=== PATIENT | male | born 1945 | race Caucasian/White ===

== ENCOUNTER 2022-05-06 12:15 | Emergency (ER) | payer MEDICARE, SELFPAY ==
--- NOTE | 2022-05-06 12:17 | ED.GENADULT ---
HPI - General Adult General Chief complaint: Dizziness Stated complaint: Heat Exposure Time Seen by Provider: 05/06/22 12:17 Source: patient and RN notes reviewed History of Present Illness HPI narrative: Patient is a 76-year-old male who presents the urgent care with the spouse with complaints of possible heat exhaustion. States that he was at a car shower morning. It was believed that the patient tripped over a couple water bottles and onto his bottom. Patient states he did not hit his head. Friend states that he seemed slightly disoriented after the fall. Spouse states that he is acting his normal since then . Patient currently denies any chest pain or dizziness. Denies of any known loss of consciousness. Patient has not taken any new medications or had any recent illness. Denies of any fever, nausea or vomiting. No other acute complaints. No acute distress noted. Patient and spouse aware of the plan of care. Some parts of this dictation were generated by voice recognition software and may contain typographical and/or grammatical inaccuracies. Related Data Home Medications Medication Instructions Recorded Confirmed amlodipine 5 mg-benazepril 10 mg 1 cap PO DAILY 05/06/22 05/06/22 capsule gabapentin 300 mg tablet 300 mg PO DAILY 05/06/22 05/06/22 hydrochlorothiazide 25 mg tablet 25 mg PO DAILY 05/06/22 05/06/22 metoprolol succinate 50 mg 50 mg PO DAILY 05/06/22 05/06/22 tablet,extended release 24 hr ropinirole 0.25 mg tablet 0.25 mg PO BID 05/06/22 05/06/22 vit 1 cap PO DAILY 05/06/22 05/06/22 C,E,zinc,Xa-fbeji-3-lutein-zeaxanthin 250 mg-2.5 mg-0.5 mg capsule Allergies Allergy/AdvReac Type Severity Reaction Status Date / Time No Known Allergies Allergy Verified 05/06/22 12:28 Review of Systems Review of Systems: CONSTITUTIONAL: Denies fever, chills, or sweats. EYES: Denies visual changes, redness, or discharge. ENT: Denies rhinorrhea, congestion, sore throat, or otalgia. CARDIOVASCULAR: Denies chest pain, palpitations, or edema. RESPIRATORY: Denies cough or dyspnea. GASTROINTESTINAL: Denies abdominal pain, nausea, vomiting, or diarrhea. GENITOURINARY: Denies dysuria or hematuria. SKIN: Denies rash or itching. MUSCULOSKELETAL: Denies back pain, joint pain, or myalgia. NEUROLOGIC: Denies headache, numbness, or weakness. Reports of an episode of dizziness All other systems reviewed are negative, except as documented in HPI. PMFSH Comments At the time of my signature, I reviewed and agree with the nursing past medical, surgical, social, and family history. There is no relevant family history pertinent to the patient complaint. Exam Narrative: GENERAL: This is a well-nourished, well-developed patient, in no apparent distress. HEAD: normocephalic, atraumatic. EYES: PERRL. Sclera clear/white. Vision is grossly intact. EARS: External ears normal NOSE: External nose normal with no obvious nasal discharge, nares without redness, no rhinorrhea. THROAT: Mucous membranes moist, posterior pharynx clear. NECK: Neck supple CARDIOVASCULAR: Regular rate and rhythm without murmurs, gallops, or rubs. RESPIRATORY: Clear to auscultation. Breath sounds equal bilaterally. No wheezes, rales, or rhonchi. SKIN: warm, intact with no suspicious lesions or rash, good texture and turgor. NEURO: awake, alert, and oriented to person, place and time. There were no obvious focal neurologic abnormalities. No signs of disorientation EXTREMITIES: No clubbing, cyanosis, or edema. Course Course Level of Care: Express Care Visit Vital Signs Vital signs: Vital Signs Temperature 97.2 F L 05/06/22 12:22 Pulse Rate 72 05/06/22 12:22 Respiratory Rate 16 05/06/22 12:22 Blood Pressure 117/56 L 05/06/22 12:22 Pulse Oximetry 100 05/06/22 12:22 Oxygen Delivery Room Air 05/06/22 12:22 Temperature 97.2 F L 05/06/22 12:31 Pulse Rate 72 05/06/22 12:31 Respiratory Rate 16 05/06/22 12:31 Blood Pressure 11
[2022-05-06 12:22] VITALS: BP 117/56; PULSE 72; RESP 16; TEMP 36.2; O2SAT 100
[2022-05-06 12:31] VITALS: BP 117/56; PULSE 72; RESP 16; TEMP 36.2; O2SAT 100
--- NOTE | 2022-05-06 12:36 | ECG_ITS ---
Measurements Intervals [place] Rate: 66 P: 57 MI: 191 QRS: -3 QRSD: 90 T: 58 QT: 395 QTc: 416 Interpretive Statements SINUS RHYTHM NORMAL ECG Electronically Signed On 05-06-2022 15:25:11 CDT by Shine Jean D.O.
[2022-05-06 12:47] LABS: Glucose Point of Care 133 mg/dl (65-105)
== END 2022-05-06 13:04 | disposition home or self-care (01) ==
PROVIDERS: Emergency Provider Nurse Practitioner Family; PCP Internal Medicine
DX: T67.5XXA Heat exhaustion, unspecified, initial encounter (principal); X32.XXXA Exposure to sunlight, initial encounter; I10 Essential (primary) hypertension; G62.9 Polyneuropathy, unspecified
CPT/HCPCS: 81003; 82948; 93005; 99203; G0463

== ENCOUNTER 2025-03-04 08:15 | Emergency (ER) | payer MEDICARE, SELFPAY ==
--- NOTE | ~2025-03-04 | XR_ITS ---
EXAMINATION: XR elbow RT min 3V DATE: 03/04/2025 08:48 INDICATION: Lateral right elbow pain post fall TECHNIQUE: Anteroposterior, two oblique and lateral views of the right elbow were obtained. COMPARISON: None. FINDINGS: Alignment is normal. No fracture or joint effusion. Mild osteoarthritis at the right elbow. Skin lace ration with underlying soft tissue tissue swelling with a few small foci of gas posterior to the olec ranon. IMPRESSION: 1. Mild osteoarthritis right elbow. No joint effusion or acute osseous abnormality. Reviewed, dictated and finalized at location A. IMPRESSION: 1. Mild osteoarthritis right elbow. No joint effusion or acute osseous abnormal ity.
[2025-03-04 08:20] VITALS: BP 150/77; PULSE 90; RESP 20; TEMP 36.7; O2SAT 98
--- OUTSIDE RECORDS SUMMARY | 2025-03-04 08:21 | XMS_ITS | Continuity of Care Document ---
Author Organization [facility] Address [address] [place] [address] Phone Care Team Providers Care Visual Educator Name Role Phone Jose Mcguire DO Unavailable Unavailable Advance Directives Directive Yes / No Effective Date File Name No Information Encounters Encounter Description Practice Location Reason(s) For Visit Diagnoses Date Provider Providers Copied on Encounter [facility], [id number] [place] [address] [address], [place], [place], [id number], [place] tel:[phone] [facility] No Information Maynor Rodriguez. [address] [facility], [place], [address], [place]. tel: [phone] Family History Family Member Type Diagnosis Age At Onset No Information Payers Payer name Insurance type Covered green party ID Authoriza tion(s) No Information Social History Type Description Quantity Date Captured Comments Sex Male Smoking Status No Information Chief Complaint And Reason For Visit No Information Reason For Referral Reason For Referral No Information History Of Present Illness Encounter Date Complaint History Of Prese nt Illness No Information Functional Status Date Functional Assessmen t No Information Instructions Date Instruction Additional Infor mation No Information Assessments Type Assessment Date No Information Patient Care Teams Name Effective Dates (start - stop) Status Members No Information
--- OUTSIDE RECORDS SUMMARY | 2025-03-04 08:21 | XMS_ITS | Encounter Summary ---
Author Organization [facility] Address [address] [place] [address] Care Team Providers Care Bundle Collector Name Role Phone Jerry Cortes MD Unavailable [phone] Betito Servin MD PhD Unavailable [phone] Isaias Moore MD Unavailable [phone] Lukas Rose MD Unavailable Demetrius Nixon MD Primary Care Provider [phone] Reason for Visit * Reason Onset Date Comments Additional Services Or Orders 02/24/2025 Encounter Details Date Type Department Care Team (Late st Contact Info) Description 02/24/[address] [facility] [address] [place] [address] Demetrius Nixon MD [address] [place] [address] Additional Services Or Orders Social History Tobacco Use Types Packs/Day Years Used Date Smoking Tobacco: Former Cigarettes 1 20 1 960 - 1980 Smokeless Tobacco: Never Alcohol Use Standard Drinks/Week Comments No 0 (1 standard drink = 0.6 oz pur e alcohol) OASIS D0700: Social Isolation Answer Da te Recorded Frequency of experiencing loneliness or isolatio n Rarely 01/28/2025 OASIS A1250: Transportation Answer Date Recorded Lack of Transportation (Medical) No 01/02/2025 Lack of Transportation (Non-Medical) No 01/02/2025 Patient Unable or Declines to Respond No 01/02/2025 OASIS B1300: Health Literacy Answer Lalito e Recorded Frequency of needing help to read materials from doctor or pharmacy Always 01/02/2025 [facility] Utilities Answer Date Recorded In the past 12 months has th e [employer], gas, oil, or water company threatened to shut off services in your home? No 12/29/2024 Humiliation, Afraid, Rape, and Kick questionnair e Answer Date Recorded Within the last year, have y ou been afraid of your partner or ex-partner? No 06/29/2024 Within the last year, have y ou been humiliated or emotionally abused in other ways by your partner or ex-partner? No Within the last year, have y ou been kicked, hit, slapped, or otherwise physically hurt by your partner or ex-partner? No 06/29/2024 Within the last year, have y ou been raped or forced to have any kind of sexual activity by your partner or ex-partner? No 06/29/2024 Social Connection and Isolat ion Panel [NHANES] Answer Date Recorded In a typical week, how many times do you talk on the phone with family, friends, or neighbors? More than three times a week 12/29/2024 How often do you get togethe r with friends or relatives? More than three times a week 12/29/2024 How often do you attend chur or pentecostal services? More than 4 times per year 12/29/2024 Do you belong to any clubs o r organizations such as baptist groups, unions, fraternal or athletic groups, or school groups? No 12/29/2024 How often do you attend meet ings of the clubs or organizations you belong to? Never 12/29/2024 Are you , , di vorced, , never , or living with a partner? 12/29/2024 AUDIT-C Answer Date Recorded Q1: How often do you have a drink containing alcohol? Never 12/04/2024 Q2: How many drinks containi ng alcohol do you have on a typical day when you are drinking? Patient does not drink Q3: How often do you have si x or more drinks on one occasion? Never 12/04/2024 Overall Financial Resource Strain (CARDIA) Answe r Date Recorded How hard is it for you to pa y for the very basics like food, housing, medical care, and heating? Not very hard 12/29/2024 PHQ-2 Answer Date Recorded PHQ-2 Total Score (If total score is 3 or more points, staff should administer the PHQ-9) 0 12/29/2024 [facility] Occupational Stress Questionnaire Answer Date Recorded Do you feel stress - tense, restless, nervous, or anxious, or unable to sleep at night because your mind is troubled all the time - these days? Very much 06/29/2024 Exercise Vital Sign Answer Date Recorde d On average, how many days pe r week do you engage in moderate to strenuous exercise (like a brisk walk)? 7 days 06/29/2024 On average, how many minutes do you engage in exercise at this level? 20 min 06/29/2024 Hunger Vital Sign Answer Date Recorded Within the past 12 months, y ou worried that your food would run out before you got the money to buy more. Never true 12/30/19 25 Within the past 12 months, t he food you bought just didn't last and you didn't have money to get more. Never true 12/29/2024 PRAPARE - Transportation Answer Date Re corded In the past 12 months, has l ack of transportation kept you from medical appointments or from getting medications? No 12/20 In the past 12 months, has l ack of transportation kept you from meetings, work, or from getting things needed for daily living? No 12/29/2024 Housing Stability Vital Sign Answer Lalito e Recorded In the last 12 months, was t here a time when you were not able to pay the mortgage or rent on time? No 12/29/2024 In the past 12 months, how m any times have you moved where you were living? 0 12/29/2024 At any time in the past 12 m [facility], were you homeless or living in a custodial (including now)? No 12/29/2024 Personal Safety Answer Date Recorded Have you ever been in or are you currently in a harmful physical or emotional relationship or is someone making you feel afraid or unsafe? Denies 2024 Sex and Gender Information Value Date Recorded Sex Assigned at Not on file Legal Sex Male 11:58 PM RODBUSTER Gender Identity Not on file Sexual Orientation Not on file documented as of this encounter Miscellaneous Notes * Telephone Encounter - Bharati Arciniega MA - 02/24/2025 1:13 PM CDT Spoke w/ Abeba and gave verbal order JEFF Nixon * Telephone Encounter - Deborah Douglas - 02/24/2025 12:28 PM CDT Additional Services or Orders Type of Service Requested:Speech Therapy Duration/Number of Visits: 1 time a week for 2 weeks Is a verbal order acceptable? yes Reason for Request (e.g. condition/symptom, date of COVID exposure if applicable): swallowing, cognitive Details Regarding Additional Services (e.g. type of home health, type of equipment, type of test, etc.): speech therapy Where will services be performed? (if outside of the practice, facility name, address, phone/fax offacility): home Additional Comments: continuation of care. Does message need to be routed? Yes-Action Needed documented in this encounter Plan of Treatment Not on file documented as of this encounter Goals Goal Patient Goal Type Associated Problems Recent Progress Patient-Stated? Author MARLENE General Goal - Patient is knowledgeable about condition when worsening and how to respond ACO Care Management On track(2023 11:02 AM RODBUSTER) Dayton Frank, RN Note: Problem: Knowledge deficit related to signs and symptoms of worsening condition Interventions: - Assess patient's level of understanding related to their condition(s), specific medications and self-management of their chronic conditions. - Send educational materials to patient related to their chronic condition, including signs and symptoms, self-management actions, and serious symptoms that require urgent medical intervention. - Assist patient/provider in developing an action plan for symptom management. - Review with patient weekly: s/s worsening condition, self-management actions to take, when to call CM or provider. documented as of this encounter Visit Diagnoses Not on filedocumented in this encounter Care Teams Bundle Collector Relationship Specialty Start Date End Date Demetrius Nixon MD [address] [place] [address] PCP - General Family Medicine 12/04/22 Jerry Cortes MD [address] [address] Consulting Physician Nephrology 05/29/22 Betito Servin MD PhD [address] [place] [address] Radiation Oncologist Radiation Oncology 09/27/22 Isaias Moore MD [address] [place] [address] Referring Physician Hematology and Oncology 09/28/22 Lukas Rose MD [address] [place] [address] Consulting Physician Pulmonary Disease 09/28/22 documented as of this encounter
--- OUTSIDE RECORDS SUMMARY | 2025-03-04 08:21 | XMS_ITS ---
Author Organization [facility] Address [address] [place] [address] Care Team Providers Care Slot Supervisor Name Role Phone Jerry Cortes MD Unavailable [phone] Betito Servin MD PhD Unavailable [phone] Isaias Moore MD Unavailable [phone] Lukas Rose MD Unavailable Demetrius Nixon MD Primary Care Provider [phone] Active Problems Problem Noted Date Diagnosed Date BPH with obstruction/lower urinary tract symptom s 2024 Benign localized prostatic h yperplasia with lower urinary tract symptoms (LUTS) 11/24/2024 Assessment & Plan (11/24/2024 1:39 PM BANDING MACHINE OPERATOR): Continues on tamsulosin. No orthostasis. Reid catheter in place. WIll monitor response. Hypertension, essential 11/24/2024 Assessment & Plan (11/24/2024 1:40 PM BANDING MACHINE OPERATOR): Stable on amlodipine and tamsulosin. Montior for orthostasis or dizziness or other symptoms of low blood pressure. SIADH (syndrome of inappropriate ADH production) 11/24/2024 Assessment & Plan (11/24/2024 1:40 PM BANDING MACHINE OPERATOR): Reviewed improved sodium with reid placmeent. Montior fluid intake and ogoing surveillance of sodium levels. 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 Blood glucose abnormal 08/12/2024 Urinary retention 07/02/2024 Assessment & Plan (11/24/2024 1:39 PM BANDING MACHINE OPERATOR): Reid catheter in place. Resolution of hematuria. Anticiapting aquaturp on . Montior for recurrent o fhematuria. Assessment & Plan (09/28/2024 2:07 PM BANDING MACHINE OPERATOR): Montior urinary retention and will continue to follow response. Assessment & Plan (08/08/2024 9:07 AM CDT): Reid catheter in place. Patient is following with Urology, will schedule AP void trial, this was originally scheduled for tomorrow however was canceled and patient is aware of need to reschedule this. Continues Flomax 0.4 mg daily. Assessment & Plan (07/08/2024 11:28 AM CDT): - Flomax 0.4mg daily - 07/01: Reid catheter placement - 07/06: reid removed, void check passed Parkinson disease 06/30/2024 Assessment & Plan (09/28/2024 2:07 PM BANDING MACHINE OPERATOR): Continue f/u with neuorology and will follow sinemet. Assessment & Plan (06/30/2024 3:01 PM CDT): - Started on home Sinemet and requip - PT/OT Acute pain 06/30/2024 Assessment & Plan (06/30/2024 12:38 PM CDT): - APAP - Oxy - SRINI - Robaxin Discharge planning issues 06/30/2024 Assessment & Plan (07/08/2024 11:27 AM CDT): - 07/01: Pending OT recs. CM initial assessment completed, +insurance - 07/02-current:Patient is medically stable for discharge, SW/CM updated. Discharge pending facility acceptance - 07/04: Insurance denied rehab. Need to perform P2P. [phone] option 5, due 07/07 by 10:00 AM - 07/07: Pending authorization to [facility] Closed displaced intertrochanteric fracture of r ight femur 06/29/2024 Assessment & Plan (09/28/2024 2:07 PM BANDING MACHINE OPERATOR): Continues to improve ambulation. Reivweed fall prevention. Assessment & Plan (08/08/2024 9:13 AM CDT): Fall at home on 06/28. Surgery, nailing of comminuted right proximal femoral intertrochanteric fracture on 06/29. Patient continues weight-bearing as tolerated, using walker. PT/OT scheduled to start next week. Scheduled with Dr. Zacarias 08/12. Continued Eliquis 2.5 mg b.i.d. for 4 weeks. Using acetaminophen p.r.n. for pain. Assessment & Plan (06/30/2024 3:02 PM CDT): - Ortho consulted - 06/29: CMN R IT femur fx - WBAT + Ambulate with assist - PT/OT for OOB/mobilization as tolerated. 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 Adenocarcinoma, lung, right 09/18/2022 Cancer Staging:Clinical stage from 09/20/2022:Stage IIIB(cT1b, cN3, cM0) - Signed by Betito Servin MD PhD on 11/22/2022 Assessment & Plan (11/24/2024 1:39 PM BANDING MACHINE OPERATOR): COntinue f/u with oncology and will monitor response. No change at the present time. Assessment & Plan (09/28/2024 2:07 PM BANDING MACHINE OPERATOR): Continue f/uw with pulmonary. Reviewed pulmonary hygiene and will montior ersponse. Mediastinal lymphadenopathy 08/25/2022 Overview (08/25/2022): Added automatically from request for surgery [id number] Hilar lymphadenopathy 08/25/2022 Overview (08/25/2022): Added automatically from request for surgery [id number] CEM (obstructive sleep apnea) 05/25/2022 Memory changes 05/25/2022 Hyponatremia 05/24/2022 Disorientation 05/23/2022 Assessment & Plan (05/23/2022 4:39 PM CDT): Etiology of this is not clear. Complicating this is his baseline neuropathy which makes changes in his neurologic exam somewhat more difficult to assess. However he clearly has a change in his thought process with decreased short-term memory and some potential increase in balance difficulties. I have had long conversation with the patient and his this evening concerning possible etiologies of this. Will do laboratory studies looking at causes of confusion as well as an MRI of the brain to rule out structural brain abnormalities. Of possibility although I consider unlikely is that medication effect may be playing into this. They have already reduced his gabapentin from 2 at HS to 1 without any obvious change in his symptoms. May need to look at his blood pressure medications if nothing is apparent on his studies. I will reach out to his neurologist as well. Periodic limb movement disorder 08/03/2021 Assessment & Plan (09/28/2024 2:06 PM BANDING MACHINE OPERATOR): Continues f/u with neuorlogy. 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 Fatigue 03/17/2021 Nocturia 03/17/2021 History of colon polyps 03/02/2021 Overview (03/02/2021): Added automatically from request for surgery [id number] Rheumatoid arthritis of [facility] sites without rheumatoid factor 05/23/2017 Assessment & Plan (05/29/2018 9:14 AM CDT): Patient disease activity is low. Currently not on any medications. He was previously on hcq, but this was stopped by his eye doctor. Denies joint pain and stiffness in his hands. On exam there is mild swelling in the wrists. No tender joints. He is having new sx of increased cold intolerance and fatigue PCP recently did lab work up. Will request copy of labs Will check AVISE test today to monitor for change in serologies. It was ordered at the previous visit, but not done. 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 Continue on metoprolol XL and lisinopril and will follo response. Assessment & Plan (07/02/2024 9:37 AM CDT): - Continue Metoprolol XL 100mg daily Assessment & Plan (11/08/2021 11:52 AM BANDING MACHINE OPERATOR): Long discussion today. His blood pressures that I am seeing here in the office or at least 20 points lower than those checked nearly simultaneously with his machine. Will add metoprolol 50 mg XL daily check renal artery ultrasound and consider obtaining a new machine. RTO 1 month Antinuclear factor positive 05/05/2014 Overview (01/25/2017): MATTHEW+ Assessment & Plan (05/29/2018 9:11 AM CDT): H/o +matthew. Will recheck serologies today Drug indicated 03/07/2010 Overview (01/25/2017): LONG-TERM USE MEDS NEC Neuropathy due to Sjogren's syndrome Overview (01/25/2017): Sjogrens syndrome Assessment & Plan (09/28/2024 2:05 PM BANDING MACHINE OPERATOR): Continues on therapy and supporitve measures with neuropathy. Assessment & Plan (05/29/2018 9:14 AM CDT): See # 1 Assessment & Plan (11/28/2017 3:59 PM BANDING MACHINE OPERATOR): He was last seen in our office in May. 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 Other fernández he had no new symptoms or findings on exam. He requested a referral for a retina specialist as his previous one is no longer taking his insurance. I suggested that he try [facility] or the [facility]. Hereditary and idiopathic neuropathy Anemia Current Treatment and Therapy Plans No current plan information found. Past Treatment and Therapy Plans Oncology Chemotherapy Treatment Plan Name Start Date Discontinue Date Treatment Medications Discontinue Reason Plan Provider Cycles Pemetrexed / CARBOplatin 21 Day Cycles - Non-Small Cell Lung 10/11/20 22 01/10/2023 CARBOplatin (PARAPLATIN)CAR BOplatin (PARAPLATIN) IVPB in 250 mLPEMEtrexed (ALIMTA)PEMEtre xed (ALIMTA) IVPB ([id number]) Therapy Complete Isaias Moore MD 4 of 6 cycles started Oncology Treatment (2) Plan Name Start Date Discontinue Date Treatment Medications Discontinue Reason Plan Provider Cycles Durvalumab Consolidation 1500 mg 28 Day Cycles - Lung 3 01/02/2024 durvalumab (IMFINZI) IVPB in 100 mL solution Therapy Complete Isaias Moore MD 12 of 12 cycles started Radiation Treatments * Course [id number]/18/2022 - 11/29/2022 Treatment Period Energy Fraction Dose Fractions Total Dose Plans Planned RIGHT LUNG 10/18/2022 - 11/29/2022 200 30 / 6,000 Reference Points Delivered RIGHT LUNG 10/18/2022 - 11/29/2022 6,000 Lifetime Dose Tracking * Chemical Lifetime Dose Automatic Entry Manual Entr y Fluoro Time 3.622 minutes 3.622 minutes 0 minutes Air kerma at the reference point (Ka,r) 56.03 mGy 5 6.03 mGy 0 mGy DLP 1,331 mGycm 1,331 mGycm 0 mGycm
--- OUTSIDE RECORDS SUMMARY | 2025-03-04 08:21 | XMS_ITS | Data Portability ---
Author Organization [facility], Main Office Address [address] [place] [address] Care Team Providers Care Telegraph And Teletype Operator Name Role Phone DRE SAUER Primary Care Provider [phone] Assessment No assessment recorded. Plan of Treatment Reminders Order Date Submit Date Provider Last Modified By Organization Details Last Modified Time Details Appointments None recorded. Lab None recorded. Referral None recorded. Procedures None recorded. Surgeries None recorded. Imaging polysomnogr am, titration study - uncorrected on 10 cmH2O and APAP 9-16, last titration [address], [address] [place], [address], 10:35:40 Medication Orders ropinirole 0.5 mg tablet 2022 023 CANDY [facility], [address] [place] [address], [id number], 14:14:05 Patient TargetsNo targets recorded. Patient InstructionsNo instructions recorded. Reason for Referral None Reported. Results Created Date Observation Date Name Description Value Unit Range Abnormal Flag Note LastModifiedBy Organization Detail LastModifiedTime 06/15/2006/14/2023 polys omnog gina, titra tion study No observ ation record ed. [address] [place] [address] [address] [place], [address], 06/20/2023 10:36:25 06/27/20 23 06/13/2023 polys omnog gina, titra tion study No observ ation record ed. BARCODE [facility] [address] [place], [address], 06/27/2023 19:37:49 Result Notes None recorded. Problems Name Problem SNOMED Code Status Onset Date Resolution Date Notes Provider Name and Address Organization Details Recorded Time Nocturia 855087034 Active 2020 Not Available [facility] 3 10:48:28 Periodic limb movement disorder 890805074 Active 2021 Not Available [facility] 3 10:48:28 Essential hypertension 72357653 Active Not Available [facility] 3 10:48:28 Obstructive sleep apnea syndrome 62342215 Active 2021 Not Available [facility] 3 10:48:28 Fatigue 57158729 Active 2022 Marni Mitchell, [facility]- [address] [facility], [address], [place], [address] , [facility] 3 10:42:15 Notes:[facility] diagnostic sleep study 03/30/21 sleep onset = 17 minutes, REM onset = 59.5 minutes, AHI = 9, PLMI = 97 [facility] titration sleep study 05/09/21 sleep onset = 24.5 minutes, REM onset = 244 minutes, ResMed medium AirFit F20 full face mask @ 10 cmH2O, PLMI = 112 [facility] titration sleep study 06/13/23 sleep onset = 13 minutes, REM onset = 186.5 minutes, [employer] medium Emperatriz full face mask @ 16-17 cmH2O, PLMI = 84 Medical History: Early REM onset Mild OSAHS, AHI = 9, 03/30/21, on CPAP c/o IVRC Hypertension BPH PLMD Problem Notes None recorded. Procedures Surgical History None recorded. Imaging Results Imaging Date Name Status LastModified by [facility] Details LastModified Time 06/14/2023 polysomnogram, titration study completed [address] [place], [address], 06/20/2023 10:36:25 06/13/2023 polysomnogram, titration study completed BARCODE [facility] [address] [place], [address], 06/27/2023 19:37:49 Procedure Notes None recorded. Medical Equipment None Reported. Allergies No known drug allergies Medications Name Sig Start Date Stop Date Status Note LastModified by Organization Details LastModified Time ketoconazole 2 % shampoo active Not Available Not Available Not Available Lidocaine Viscous 2 % mucosal solution active Not Available Not Available Not Available metoprolol succinate ER 50 mg tablet,exten ded release 24 hr 06/21 completed Not Available Not Available Not Available ondansetron HCl 8 mg tablet active Not Available Not Available Not Available metoprolol succinate ER 100 mg tablet,exten ded release 24 hr active Not Available Not Available Not Available prochlorpera zine maleate 10 mg tablet active Not Available Not Available Not Available tamsulosin 0.4 mg capsule active Not Available Not Available Not Available amlodipine 5 mg-benazepri l 10 mg capsule TAKE ONE CAPSULE BY MOUTH DAILY 06/21 completed Not Available Not Available Not Available ropinirole 0.25 mg tablet active Not Available Not Available Not Available amlodipine 10 mg tablet active Not Available Not Available Not Available neomycin-robert ymyxin-dexam eth 3.5 mg/mL-10,000 unit/mL-0.1% eye drops active Not Available Not Available No t Available ropinirole 0.5 mg tablet Take 1 tablet every day by oral route in the evening for 30 days. active Not Available Not Available No t Available dexamethason e 4 mg tablet active Not Available Not Available Not Available lisinopril 10 mg tablet active Not Available Not Available Not Available gabapentin 300 mg capsule 06/21 completed Not Available Not Available Not Available folic acid 1 mg tablet active Not Available Not Available No t Available codeine 10 mg-guaifenes in 100 mg/5 mL oral liquid active Not Available Not Available Not Available hydrochlorot hiazide 25 mg tablet 06/21 completed Not Available Not Available Not Available gabapentin 100 mg capsule active Not Available Not Available Not Available albuterol sulfate HFA 90 mcg/actuatio n aerosol inhaler active Not Available Not Available Not Available ketoconazole 2 % topical cream active Not Available Not Available Not Available betamethason e dipropionate 0.05 % lotion active Not Available Not Available Not Available amlodipine 10 mg-benazepri l 20 mg capsule 06/21 completed Not Available Not Available Not Available hydrocodone 7.5 mg-acetamino phen 325 mg/15 mL oral solution active Not Available Not Available Not Available peg 3350-electro lytes 236 gram-22.74 gram-6.74 gram-5.86 gram solution 12/22 completed Not Available Not Available Not Available Combivent Respimat 20 mcg-100 mcg/actuatio n solution for inhalation active Not Available Not Available N ot Available Fluzone High-Dose (PF) 180 mcg/0.5 mL intramuscula r syringe active Not Available Not Available No t Available Fluzone High-Dose (PF) 180 mcg/0.5 mL intramuscula r syringe active Not Available Not Available No t Available Trelegy Ellipta 100 mcg-62.5 mcg-25 mcg powder for inhalation active Not Available Not Available N ot Available Paxlovid 300 mg (150 mg x 2)-100 mg tablets in a dose pack 12/22 completed Not Available Not Available Not Available Vitals Date Recorded Body height Body mass index (BMI) Body weight Body temperature Heart rate Oxygen saturation Oxygen saturation in Arterial blood by Pulse oximetry Systolic blood pressure Diastolic blood pressure Provider Name and Address Organization Details Last Updated DateTime 3 185.42 cm 24.8 kg/m2 21559.3 7 g 97.2 [degF] 68 /min 97 % 97 % 132 mm[Hg] 80 mm[Hg] Bharati Hatch MA [place] [employer] 3 10:33:19 Date Recorded Body height Body mass index (BMI) Body weight Body temperature Heart rate Oxygen saturation Oxygen saturation in Arterial blood by Pulse oximetry Systolic blood pressure Diastolic blood pressure Provider Name and Address Organization Details Last Updated DateTime 3 185.42 cm 24 kg/m2 18065.8 1 g 98 [degF] 96 /min 95 % 95 % 132 mm[Hg] 70 mm[Hg] Bharati Hatch MA [employer] 3 09:31:03 Date Recorded Body height Body mass index (BMI) Body weight Body temperature Heart rate Oxygen saturation Oxygen saturation in Arterial blood by Pulse oximetry Systolic blood pressure Diastolic blood pressure Provider Name and Address Organization Details Last Updated DateTime 3 185.42 cm 24.8 kg/m2 40333.3 7 g 97.2 [degF] 89 /min 97 % 97 % 118 mm[Hg] 48 mm[Hg] Briana [facility]VARA [facility] [employer] [facility] 3 10:37:53 Date Recorded Body height Body mass index (BMI) Body weight Heart rate Oxygen saturation Oxygen saturation in Arterial blood by Pulse oximetry Systolic blood pressure Diastolic blood pressure Provider Name and Address Organization Details Last Updated DateTime 3 185.42 cm 24.5 kg/m2 71183.1 8 g 88 /min 94 % 94 % 112 mm[Hg] 58 mm[Hg] Briana GUEVARA [employer] [facility] [employer] [facility] 3 10:34:07 Date Recorded Body height Body mass index (BMI) Body weight Body temperature Heart rate Oxygen saturation Oxygen saturation in Arterial blood by Pulse oximetry Systolic blood pressure Diastolic blood pressure Provider Name and Address Organization Details Last Updated DateTime 3 185.42 cm 24.7 kg/m2 64132.7 7 g 97.9 [degF] 96 /min 96 % 96 % 140 mm[Hg] 62 mm[Hg] Briana Salinas [employer] [facility] [employer] [facility] 3 12:43:14 Social History Question Answer Notes LastModified by [employer] ion Details LastModified Time Tobacco Smoking Status Former Smoker Not Available [facility] 12/20/2022 10:42:31 Do You Have An Advance Directive? No [id number] Information not available 12/20/2022 What Is Your Level Of Caffeine Consumption? Moderate [id number].[id number] Information not available 12/20/2022 How Much Tobacco Do You Chew? None MIGRATION.[id number] Information not available 12/20/2022 In The 14 Days Before Symptom Onset, Have You Had Close Contact With A Laboratory-confirm ed COVID-19 While That Case Was Ill? No [id number] Information not available 12/20/2022 In The 14 Days Before Symptom Onset, Have You Had Close Contact With A Person Who Is Under Investigation For COVID-19 While That Person Was Ill? No MIGRATION.[id number] Information not available 12/20/2022 What Type Of Diet Are You Following? REGULAR MIGRATION.[id number] Information not available 12/20/2022 Which Illicit Or Recreational Drugs Have You Used? None MIGRATION.[id number] Information not available 12/20/2022 Do You Have An Electrostatic Air Filter? No MIGRATION.[id number] Information not available 12/20/2022 When Did You Quit Smoking? 16+yearssince lastcigarette MIGRATION.[id number] 1554 Information not available 12/20/2022 Do You Have A Humidifier? No MIGRATION.[id number] 3726 Information not available 12/20/2022 Do You Have Moisture Problems In Your Home? No MIGRATION.[id number] Information not available 12/20/2022 What Was The Date Of Your Most Recent Tobacco Screening? 12/01/2021 MIGRATION.[id number] Information not available 12/20/2022 How Many Children Do You Have? 2 MIGRATION.[id number] 3153 Information not available 12/20/2022 Do You Have Any Pets? Yes MIGRATION.[id number] Information not available 12/20/2022 At What Age Did You Start Smoking Tobacco? 19 MIGRATION.[id number] 9412 Information not available 12/20/2022 How Much Tobacco Do You Smoke? 1 PPD MIGRATION.[id number] 7585 Information not available 12/20/2022 How Many Years Have You Smoked Tobacco? 26 MIGRATION.[id number] 0173 Information not available 12/20/2022 Have You Recently Traveled Abroad? No MIGRATION.[id number] Information not available 12/20/2022 Sex: Male Functional Status Question Answer Note LastModified by Organizat ion Details LastModified Time Do you use any illicit or recreational drugs? No MIGRATION.[id number] 9970 Information not available 12/20/2022 What is your level of alcohol consumption? None MIGRATION.[id number] 2520 Information not available 12/20/2022 Do you or have you ever used smokeless tobacco? Never used smokeless tobacco MIGRATION.[id number] 3285 Information not available 12/20/2022 What is your occupation? retired MIGRATION.568112 2790 Information not available 12/20/2022 Do you or have you ever used e-cigarettes or vape? Never used electronic cigarettes MIGRATION.[id number] 8234 Information not available 12/20/2022 What is your exercise level? Occasional MIGRATION.[id number] 4613 Information not available 12/20/2022 Mental Status None recorded. Family History Relationship Description Onset Age of this Age Resolved Age Notes LastModified by Organization Details LastModified Time Father Heart disease [id number] Not available 12/20/2022 10:43:15 Father Hypertensive disorder MIGRATION.[id number] Not available 12/20/2022 10:43:15 Mother Heart disease MIGRATION.[id number] Not available 12/20/2022 10:43:15 Mother Hypertensive disorder MIGRATION.[id number] Not available 12/20/2022 10:43:15 Mother Diabetes mellitus [id number] Not available 12/20/2022 10:43:15 Medical History Condition Response CHEST XRAY N NERVE DISEASE N BLINDNESS N POLIO N LUNG DISEASE/DISORDER N RADIATION / CHEMOTHERAPY N COPD N BLOOD DISEASES N EAR OR HEARING PROBLEMS Y BOWEL PROBLEMS N FEMALE PROBLEMS / INFECTIONS N DEPRESSION (INCLUDING POST ) N STROKE/TIA N CHEST CT N ULCERS N RENAL INSUFFICIENCY N BENIGN PROSTATIC HYPERPLASIA N TB SKIN TEST N OBESITY N EXCESSIVE PERSPIRATION N GERD/NAUSEA N ANEURYSM N URINARY/BLADDER/KIDNEY PROBLEMS N CORONARY ARTERY DISEASE (CAD) N USE OF BLOOD THINNERS N SKIN PROBLEMS N EMPHYSEMA N SHORTNESS OF BREATH N GASTROINTESTINAL DISORDER N PARATHYROID DISEASE N PERIPHERAL VASCULAR DISEASE N GASTROINTESTINAL BLEEDING N BLOOD CLOTS N ASTHMA N CONCUSSION OR SPINAL TRAUMA N VARICOSITIES N GI PROBLEMS N CHF N AIDS/HIV N HYPERTENSION N TOURETTE'S N ANXIETY DISORDER N BLOOD TRANSFUSION N ANEMIA/BLOOD DISORDER N BRONCHITIS N TUBERCULOSIS N GLAUCOMA N SLEEP APNEA N ALLERGIES/HAYFEVER N INFECTIOUS DISEASE N HEART ARRHYTHMIA N PROSTATE N INSOMNIA N HIGH CHOLESTEROL / HYPERLIPIDEMIA N EDEMA N CAROTID BLOCKAGE N BACK / NECK PROBLEMS Y HAVE YOU BEEN HOSPITALIZED OR SEEN IN THE MEDICAL CENTER IN THE PAST YEAR ? N ATHEROSCLEROSIS N BREAST PROBLEMS N HERNIATED DISC N DIALYSIS N FIBROMYALGIA N OSTEOPOROSIS N ARTHRITIS N NO SIGNIFICANT PAST MEDICAL HISTORY N DIABETES, TYPE N SEASONAL ALLERGIES N HEARTBURN / REFLUX N PLEURISY N ADD/ADHD N Bronchoscopy N HEPATITIS / LIVER DISEASE N PULMONARY DISEASE N GOUT N SLEEP DISORDER N ALZHEIMER'S DISEASE N FATIGUE Y DEMENTIA N HERPES N RETINOPATHY N SEIZURES/EPILEPSY N HEADACHES/MIGRAINES N SLEEP STUDY N VASCULAR DISEASE N DIZZINESS N HEAD TRAUMA OR INJURY N HEART DISEASE/HEART PROBLEMS N MULTIPLE SCLEROSIS N PULMONARY FUNCTION TEST N CARDIAC ARRHYTHMIA N CANCER: SPECIFY N ANESTHESIA COMPLICATIONS N PNEUMONIA N ATRIAL FIBRILLATION N PULMONARY EMBOLISM N AUTOIMMUNE DISEASE N Immunizations Vaccine Type Date Status Note Provider Nam e and Address Organization Details Recorded Time influenza, unspecified formulation 8 completed Not Available [employer] 12/20/2022 10:52:49 Influenza, high-dose, trivalent, PF 5 completed Not Available Count includes the [facility] 12/20/2022 10:52:50 COVID-19, mRNA, LNP-S, PF, 30 mcg/0.3 mL dose 1 completed Not Available [facility] 12/20/2022 10:52:50 COVID-19, mRNA, LNP-S, PF, 30 mcg/0.3 mL dose 1 completed Not Available [facility] 12/20/2022 10:52:50 Influenza, high-dose, trivalent, PF 3 completed Not Available [facility] 12/20/2022 10:52:50 Past Encounters Encounter ID Performer Location Encounter Start Date Encounter Closed Date Diagnosis/Indication Diagnosis SNOMED-CT Code Diagnosis ICD10 Code Diagnosis Note [id number] [facility] [place] [address], [address] [place] [address] 03/17/2021 00:00:00 03/17/2021 15:49:28 [id number] [facility] [place] [address], [address] [place] [address] 07/29/2021 00:00:00 07/29/2021 11:34:02 [id number] [facility] [place] [address], [address] [place] [address] 09/01/2021 00:00:00 09/01/2021 10:48:51 [id number] [facility] [place] [address], [address] [place] [address] 12/01/2021 00:00:00 12/01/2021 13:18:09 [id number] BRITTNY Thomas [facility] [place] [address], [address] [place] [address] 06/21/2022 00:00:00 06/21/2022 11:32:28 [id number] DTA Thomas [facility] [address] [place] [address] 12/22/2022 10:23:15 12/22/2022 11:12:18 Obstructive sleep apnea syndrome 80584398 G47.33 In lab study 03/2021 with AHI 8.9 In lab titration with best pressure 10 resulting in AHI 1.8 over 166 minutesMac oriana set up 06/13/21Re john on APAP 9-16Downlo ad today for the last 30 days with 70% use greater than 4 hours. Median pressure 9.1, max pressure 10.6AHI is 7.1ESS 1Encourage d 100% compliance with all sleepDiscu ssed the risks of uncorrecte d CEM, including Follow with PCM for labs, recommend vitamin D, thyroid studies Advised good sleep habits and patterns: -Set a goal for at least 7 to 8 hours of sleep time per day. -Use the bed mainly for sleep and to go to bed only when tired.If unable to fall asleep after 30 minutes, he should get out of bed but should not engage in any activity that requires sustained mental alertness. -Maintain a regular bedtime and wake-up time even on weekends-A void excessive naps during the daytime. If a nap is necessary, limit it to no more than 30 minutes. -Minimize environmen anabelle noise, bright lights, and extremes in bedroom temperatur e.-Avoid alcohol, caffeinate d beverages, and nicotine products for at least 6 hours prior to bedtime. -Avoid strenuous exercise and large meals for at least 4 hours prior to bedtime.Or divina for new mask today with foam insert, this is medically necessary to prevent breakdown. Instructed on use with all napsHe is aware of reportable signs and symptoms RTC in 6 weeks for download, call PRN for concerns Periodic l imb movement disorder 905656116 G47.61 PLMS during titration 112.5/hour He is already on gabapentin at night however dose has been decreased Labs normal He is not taking Ropinirole 0.25mg po 2 hours before bed nightly. Fatigue 84669442 R53.83 Reassess at next OV after changes [id number] DAT Thomas [facility] [address] [place] [address] 02/06/2023 09:11:58 02/06/2023 10:14:48 Obstructive sleep apnea syndrome 91177618 G47.33 In lab study 03/2021 with AHI 8.9In lab titration with best pressure 10 resulting in AHI 1.8 over 166 minutesMac oriana set up 06/13/21Re john on APAP 9-16Downlo ad today for the last 90 days with 88% use greater than 4 hours.Medi an pressure 9.3, max pressure 12AHI is 8.0ESS 3Encourage d 100% compliance with all sleepDiscu ssed the risks of uncorrecte d CEM, including deathFollo w with PCM for labs, recommend vitamin D, thyroid studiesAdv ised good sleep habits and patterns:- Set a goal for at least 7 to 8 hours of sleep time per day.-Use the bed mainly for sleep and to go to bed only when tired.If unable to fall asleep after 30 minutes, he should get out of bed but should not engage in any activity that requires sustained mental alertness. -Maintain a regular bedtime and wake-up time even on weekends-A void excessive naps during the daytime. If a nap is necessary, limit it to no more than 30 minutes.-M inimize environmen anabelle noise, bright lights, and extremes in bedroom temperatur e.Avoid alcohol, caffeinate d beverages, and nicotine products for at least 6 hours prior to bedtime.-A void strenuous exercise and large meals for at least 4 hours prior to bedtime.Or divina for mask fit virtually todayInstr ucted on use with all napsHe is aware of reportable signs and symptomsRT C in 2 months for download, call PRN for concerns Periodic l imb movement disorder 290808084 G47.61 PLMS during titration 112.5/hour He is already on gabapentin 200 at nightLabs normalHe is not taking Ropinirole 0.25mg po 2 hours before bed nightly, he does not want to start another medication R/T his other medical conditions at this timeDoes not wake at night jerking Nocturia 943684510 R35.1 ImprovedLi beth liquid intake prior to bed Fatigue 57607498 R53.83 Multifacto ralReasses s at next OV after changes [id number] Marni Mitchell, [facility] [address] [place] [address] 04/10/2023 10:23:12 04/10/2023 11:42:44 Obstructive sleep apnea syndrome 85353022 G47.33 In lab study 03/2021 with AHI 8.9In lab titration with best pressure 10 resulting in AHI 1.8 over 166 minutesMac oriana set up 06/13/21Re jhon on APAP 9-16 todayHas had multiple pressure changes and has been unable to correct AHIDownloa d today for the last 30 days with 100% use greater than 4 hours.Medi an pressure 10.3, max pressure 14.3AHI is 14.2ESS 6Encourage d 100% compliance with all sleepDiscu ssed the risks of uncorrecte d CEM, including deathFollo w with PCM for labs, recommend vitamin D, thyroid studiesAdv ised good sleep habits and patterns:- Set a goal for at least 7 to 8 hours of sleep time per day.-Use the bed mainly for sleep and to go to bed only when tired.If unable to fall asleep after 30 minutes, he should get out of bed but should not engage in any activity that requires sustained mental alertness. -Maintain a regular bedtime and wake-up time even on weekends-A void excessive naps during the daytime. If a nap is necessary, limit it to no more than 30 minutes.-M inimize environmen anabelle noise, bright lights, and extremes in bedroom temperatur e.Avoid alcohol, caffeinate d beverages, and nicotine products for at least 6 hours prior to bedtime.-A void strenuous exercise and large meals for at least 4 hours prior to bedtime.In structed on use with all napsDiscus sed further plan of care, he agrees to in-lab titration, ordered todayPress ure change todayHe is aware of reportable signs and symptomsRT C in 2 months, call PRN for concerns Periodic l imb movement disorder 598593414 G47.61 PLMS during titration 112.5/hour He is already on gabapentin 200 at nightLabs normalHe is not taking Ropinirole 0.25mg po 2 hours before bed nightly, he does not want to start another medication R/T his other medical conditions at this timeDoes not wake at night jerking Nocturia 254026653 R35.1 ImprovedLi beth liquid intake prior to bed Fatigue 95655322 R53.83 Multifacto ralReasses s at next OV after changes and titration [id number] Marni Mitchell, [employer] [place] [address] [place] [address] 06/20/2023 10:15:11 06/20/2023 10:52:18 Obstructive sleep apnea syndrome 34643424 G47.33 In lab study 03/2021 with AHI 8.9In lab titration 2020 with best pressure 10 resulting in AHI 1.8 over 166 minutesMac oriana set up 06/13/21Re [facility] on APAP 9-16 todayHad multiple pressure changes, unable to correct AHIIn-lab titration completed 05/2023 with best pressure 16-17 - this corrected AHI and oxygen saturation s maintained 93% or greaterAro usal index from PLMD was 3. He did not take ropinirole the night of his studyDownl oad today for the last 30 days with 100% use greater than 4 hours.Not corrected on 11cm A1LWamohoz ged 100% compliance with all sleepDiscu ssed the risks of uncorrecte d CEM, including deathFollo w with PCM for labs, recommend vitamin D, thyroid studiesAdv ised good sleep habits and patterns:- Set a goal for at least 7 to 8 hours of sleep time per day.-Use the bed mainly for sleep and to go to bed only when tired.If unable to fall asleep after 30 minutes, he should get out of bed but should not engage in any activity that requires sustained mental alertness. -Maintain a regular bedtime and wake-up time even on weekends-A void excessive naps during the daytime. If a nap is necessary, limit it to no more than 30 minutes.-M inimize environmen anabelle noise, bright lights, and extremes in bedroom temperatur e.Avoid alcohol, caffeinate d beverages, and nicotine products for at least 6 hours prior to bedtime.-A void strenuous exercise and large meals for at least 4 hours prior to bedtime.In structed on use with all napsPressu re change todayHe is aware of reportable signs and symptomsRT C in 1-2 months, call PRN for concerns Periodic l imb movement disorder 299228013 G47.61 PLMS during titration 112.5/hour He is already on gabapentin 200 at nightLabs normalRopi nirole 0.25mg po 2 hours before bed nightlyDoe s not wake at night jerking Nocturia [id number] R35.1 Improved Fatigue [id number] R53.83 Multifacto ralReasses s at next OV after changes and titration [id number] Marni Mitchell, SALES ORDER SPECIALIST-BC [facility] [place] [address] [place] [address] 08/08/2023 12:23:45 08/08/2023 14:38:03 Obstructive sleep apnea syndrome [id number] G47.33 In lab study 03/2021 with AHI 8.9In lab titration 2020 with best pressure 10 resulting in AHI 1.8 over 166 minutesMac oriana set up 06/13/21Re john on APAP 16-17 todayIn-la b titration completed 05/2023 with best pressure 16-17 - this corrected AHI and oxygen saturation s maintained 93% or greaterAro usal index from PLMD was 3. He did not take ropinirole the night of his studyDownl oad today for the last 30 days with 100% use greater than 4 hours.AHI has improved from 31.1 to 9.6Continu es to have correlatio n between high leak and increased AHIEncoura ged 100% compliance with all sleepDiscu ssed the risks of uncorrecte d CEM, including deathFollo w with PCM for labs, recommend vitamin D, thyroid studiesAdv ised good sleep habits and patterns:- Set a goal for at least 7 to 8 hours of sleep time per day.-Use the bed mainly for sleep and to go to bed only when tired.If unable to fall asleep after 30 minutes, he should get out of bed but should not engage in any activity that requires sustained mental alertness. -Maintain a regular bedtime and wake-up time even on weekends-A void excessive naps during the daytime. 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 PLMS during titration 112.5/hour He is already on gabapentin 200 at nightLabs normalRopi nirole 0.25mg po 2 hours before bed nightlyInc rease to 0.5mgDiscu ssed reportable signs and symptoms Health Concerns Section Related Observation LastModified by Organization Detai ls LastModified Time None Recorded Concern Status LastModified by Organization Details LastModified Time None Recorded Advance Directives Directive N: Payers Encounter Date Sequence Insurance Name Policy Number Policy Holguin Covered Member ID Holguin Member ID Guarantor Name 12/22/2022 1 [employer] - [employer] MEDICARE ADVANTAGE (MEDICARE REPLACEMENT PPO) [id number] Brown Diaz Obrock [id number] Ray Diaz Obrock 02/06/2023 1 [employer] - GROUP MEDICARE ADVANTAGE (MEDICARE REPLACEMENT PPO) [id number] Brown Joe Obrock [id number] Ray Diaz Obrock 04/10/2023 1 [employer] - GROUP MEDICARE ADVANTAGE (MEDICARE REPLACEMENT PPO) [id number] Brown W Obrock [id number] Ray Diaz Obrock 06/20/2023 1 [employer] - GROUP MEDICARE ADVANTAGE (MEDICARE REPLACEMENT PPO) [id number] Brown W Obrock [id number] Ray Diaz Obrock 08/08/2023 1 [employer] - [employer] - GROUP MEDICARE ADVANTAGE (MEDICARE REPLACEMENT PPO) [id number] Obrock [id number] Ray Diaz Obrock Notes Date Note Type Note Provider Name and Address Organization Details Recorded Time 12/22/2022 text/html Mr Jones pressachin ts today, accompanied by his , to follow up on CEM.His last 6 months have been complicated, with hospitalization for hyponatremia and resulting lung cancer diagnosis.He has completed his radiation therapy at this time and is in the middle of his chemotherapy treatmentsHe is not sleeping wellHe is falling asleep unintentionally during the day after lunchHas had significant pain and redness to bridge of nose from current maskFatigue is increasedHe can relate bad nights to days that he has treatmentsNo weight lossDenies GERD and sinus congestionReports he does not wake due to jerking, but reports she notices this frequently when he is napping Marni Mitchell, SALES ORDER SPECIALIST-BC [address], [place], [address], [facility] [employer] 12/22/2022 14:33:15 02/06/2023 text/html Mr Robert stanton ts today, accompanied by his , to follow up on CEM and mask changesReports the foam insert has decreased breakdown but he is having difficulty with mask leakHe is pulling his straps tight but continues to have leak and reports his mask is uncomfortableWife rpeorts she hears the leak frequently throughout the nightHe is [id number]|2025-03-04 08:45:10|2025-03-04 08:45:10|ED.UPPEXIN||||"HPI - Extremity Injury (Upper) General Stated Complaint: fall Time Seen by Provider: 03/04/25 08:56 Source: patient and RN notes reviewed Mode of arrival: ambulatory Limitations: no limitations History of Present Illness HPI narrative: 79-year-old male with history of Parkinson's disease presents with concern for injury to the right elbow. Reports yesterday he slipped and fell while using his walker on some mikala. He has a swollen elbow with open wound. His reports they washed it and put ice on it. MD complaint: injury to: right and elbow Related Data Home Medications Medication Instructions Recorded Confirmed Last Taken Type amlodipine 5 mg-benazepril 10 mg 1 cap PO DAILY 05/06/22 05/06/22 Unknown History capsule gabapentin 300 mg tablet 300 mg PO DAILY 05/06/22 05/06/22 Unknown History hydrochlorothiazide 25 mg tablet 25 mg PO DAILY 05/06/22 05/06/22 Unknown History metoprolol succinate 50 mg 50 mg PO DAILY 05/06/22 05/06/22 Unknown History tablet,extended release 24 hr ropinirole 0.25 mg tablet 0.25 mg PO BID 05/06/22 05/06/22 Unknown History vit 1 cap PO DAILY 05/06/22 05/06/22 Unknown History C,E,zinc,Ae-ncxcd-4-lutein-zeaxanthin 250 mg-2.5 mg-0.5 mg capsule amlodipine 10 mg tablet mg 03/04/25 Unknown History carbidopa 25 mg-levodopa 100 mg tablet 03/04/25 Unknown History tablet fluticasone fur. 100 mcg-umeclid inhalation 03/04/25 Unknown History 62.5 mcg-vilant 25 mcg inhalat.powder (Trelegy Ellipta) levothyroxine 25 mcg tablet mcg 03/04/25 Unknown History lisinopril 10 mg tablet mg 03/04/25 Unknown History metoprolol succinate 100 mg mg PO 03/04/25 Unknown History tablet,extended release 24 hr tamsulosin 0.4 mg capsule mg PO 03/04/25 Unknown History Allergies Allergy/AdvReac Type Severity Reaction Status Date / Time No Known Allergies Allergy Verified 03/04/25 08:51 Review of Systems Review of Systems: CONSTITUTIONAL: Denies malaise, chills, sweats, or fever. SKIN: Denies rash or itching, redness, warmth. Reports laceration left elbow MUSCULOSKELETAL: Reports left elbow pain and swelling NEUROLOGIC: Denies numbness, weakness All systems reviewed & are unremarkable except as noted in HPI and below PMFSH Comments At time of signature, agree with nursing past medical, surgical, social and family history. There is no relevant family history pertinent to the presenting complaint Exam Narrative: GENERAL: Well-appearing, well-nourished, and in no acute distress. HEAD: Normocephalic, atraumatic. EYES: PERRLA, conjunctivae clear NECK: Supple. CHEST: Speaks in full sentences. No respiratory distress. HEART: Regular rate and rhythm. Normal and equal peripheral pulses. EXTREMITIES: Left upper extremity has grossly normal strength and sensation, grossly normal range of motion. Elbow edema without edema, warmth, ecchymosis. Normal sensation with sensitivity to light touch and pain. No point tenderness. No skin tenting, no devitalized tissue or atrophy, no trophic changes, no obvious deformity, alignment normal, nearby joints and structures intact. Distal pulses palpable and equal bilaterally, skin warm, dry, pink. Capillary refill less than 3 seconds. SKIN: Warm, dry, no rash. Skin tear combined with laceration noted to the left elbow NEURO: Alert and oriented x3. PSYCH: Normal mood and affect Back/Spine/Pelvis: Back/spine/pelvis image:  1. 2 cm skin tear with combined laceration Course Course Emergency Course: Laceration noted to the left elbow, occurred yesterday. Laceration is surrounded by complete skin tear. Suturing not appropriate for this reason. Steri-Strips applied to close wound, Gonzalez wrap applied to elbow to keep elbow slightly immobilized to decrease chance of wound opening Patient is aware of diagnosis, understands and agrees to treatment plan. Anticipatory guidance given. Patient agrees to follow-up as directed and is aware of reasons to seek care at the emergency department. Portions of this record may have been created with voice recognition software Level of Care: Express Care Visit Vital Signs Vital signs: Vital Signs Temperature 98.1 F 03/04/25 08:20 Pulse Rate 90 03/04/25 08:20 Respiratory Rate 20 03/04/25 08:20 Blood Pressure 150/77 H 03/04/25 08:20 Pulse Oximetry 98 03/04/25 08:20 Oxygen Delivery Room Air 03/04/25 08:20 Temperature 98.1 F 03/04/25 08:20 Pulse Rate 90 03/04/25 08:20 Respiratory Rate 20 03/04/25 08:20 Blood Pressure 150/77 H 03/04/25 08:20 Pulse Oximetry 98 03/04/25 08:20 Oxygen Delivery Room Air 03/04/25 08:20 Reviewed. Procedures Laceration Laceration 1: Date: 03/04/25 Time: : Site: upper extremity Side (If applicable): right Size (cm): 2 Description: irregular Depth: simple, single layer Pre-repair: wound explored and irrigated ====== Skin Level ====== Skin layer closed with: steri strips ====== Subcutaneous Layer ====== ====== Muscle Layer ====== ====== Tendon Layer ====== MDM - Extremity Injury (Upper) MDM Narrative Medical decision making narrative: Patients injury and pain is consistent with musculoskeletal etiology. No signs of neurological or vascular compromise on exam. Compartments and tissues are soft without signs of compartment syndrome. Pain is felt appropriate for further evaluation on an outpatient basis. Imaging Data My impression: Images reviewed, interpreted by radiologist, agree, see report. Radiologist's impression: EXAMINATION: XR elbow RT min 3V DATE: 03/04/2025 08:48 INDICATION: Lateral right elbow pain post fall TECHNIQUE: Anteroposterior, two oblique and lateral views of the right elbow were obtained. COMPARISON: None. FINDINGS: Alignment is normal. No fracture or joint effusion. Mild osteoarthritis at the right elbow. Skin laceration with underlying soft tissue tissue swelling with a few small foci of gas posterior to the olecranon. IMPRESSION: 1. Mild osteoarthritis right elbow. No joint effusion or acute osseous abnormality. Critical Care Time Critical Care Time Critical Care Time: No Discharge Plan Discharge Clinical Impression: Laceration, Elbow injury Patient Disposition: Home Condition: Stable Instructions: Laceration (ED) Additional Instructions: Your x-ray is normal. Keep Steri-Strips intact for 24-48 hours. Use Gonzalez wrap to help immobilize elbow to help keep wound edges from opening up. Use ice when you have the Gonzalez wrap removed. Please make a follow-up appoint with your primary care provider for further evaluation. If you have any urgent concerns please go to the emergency room Patient Language: Belizean Prescriptions: No Action metoprolol succinate 50 mg Tablet Extended Release 24 Hr 50 mg PO DAILY amlodipine-benazepril 5-10 mg Capsule 1 cap PO DAILY PreserVision AREDS-2 (omega-3) 250-2.5-0.5 mg Capsule 1 cap PO DAILY ropinirole 0.25 mg Tablet 0.25 mg PO BID hydrochlorothiazide 25 mg Tablet 25 mg PO DAILY gabapentin 300 mg Tablet 300 mg PO DAILY Follow-up/Referrals: Harms,Dre Kemp M.D. [Primary Care Provider] - Time of Disposition: 09:38"
--- OUTSIDE RECORDS SUMMARY | 2025-03-04 08:21 | XMS_ITS | Clinical Summary ---
Author Organization [facility] Address [address] [place] [address] Care Team Providers Care Pit Clerk Name Role Phone Luis Patrick MD Primary Care Provider [phone] Source Comments [facility],non-owned Affiliates and Associated Physician Practices is amultiple site organization consisting of ambulatory clinics and hospital sitesin [place], [place], [place] and [place]. This disclosure is being madepursuant to the Care Everywhere program and may not contain all information available regarding this patient. 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 Gender Identity Not on file Sexual Orientation Not on file Plan of Treatment Health Maintenance Due Date Last Done Comments HEPATITIS C SCREENING [birth year]21/1963 DTAP/TDAP/TD VACCINES (1 - Tdap) 1965 PNEUMOCOCCAL VACCINE 50+ (1 of 1 - PCV) 1996 ZOSTER VACCINE (1 of 2) 1996 Respiratory Syncytial Virus (RSV) Vaccine Pt: or over 60 yrs (1 - 1-dose 75+ series) 2021 COVID-19 VACCINE ( - 2023-2 5 season) 2024 DEPRESSION SCREENING 10/22/2024 INFLUENZA VACCINE (Season Ended) 2025 HEPATITIS B VACCINE Aged Out No longe r eligible based on patient's age to complete this topic HIB VACCINE Aged Out No longer eligi ble based on patient's age to complete this topic HPV VACCINE Aged Out No longer eligi ble based on patient's age to complete this topic MENINGOCOCCAL (Group B) VACC INE SHARED DECISION-MAKING Aged Out No longer eligibl e based on patient's age to complete this topic MENINGOCOCCAL GROUPS A/C/Y/W VACCINE Aged Out No longer eligible b ased on patient's age to complete this topic Insurance MEDICARE MEDICARE ADVANTAGE GENERIC Care Teams Pit Clerk Relationship Specialty Start Date End Date Luis Patrick MD PCP - General Internal Medicine 07/23/14
--- OUTSIDE RECORDS SUMMARY | 2025-03-04 08:21 | XMS_ITS | Clinical Summary ---
Author Organization [facility] Address [address] [place] [address] Phone Care Team Providers Care Home Care Coordinator Name Role Phone Demetrius Nixon MD Primary Care Provider [phone] Lowell Mccallum MD Unavailable [phone] Medications amLODIPine (NORVASC) 10 MG Tablet 03/25/20 24 Active aspirin EC 81 MG Tablet Delayed Response Take 81 mg by mouth daily. Active tamsulosin (FLOMAX) 0.4 MG Capsule 03/10/20 24 Active metoprolol Succinate (TOPROL-XL) 100 MG TABLET SR 24 HR 02/26/20 24 Active lisinopril (PRINIVIL, ZESTRIL) 10 MG Tablet 02/20/20 24 Active folic acid (FOLVITE) 1 MG Tablet 04/18/20 24 Active Cholecalcifer ol 50 mcg Tablet Take by mouth. Activ e Cyanocobalami n (VITAMIN B-12) 1000 MCG Tablet Take 1,000 mcg by mouth daily. Active Fluticasone-U meclidin-Mark Anthony nt (Trelegy Ellipta) 100-62.5-25 MCG/ACT AEROSOL POWDER, BREATH ACTIVATED take 1 Puff by inhalation daily. Active rOPINIRole (REQUIP) 0.5 MG Tablet Take 0.5 mg by mouth 3 times daily. Active oxyCODONE (ROXICODONE) 5 MG TabletIndicat ions:Other chronic pain Take 1 Tablet by mouth every 4 hours as needed for Moderate or more severe pain. 120 Tablet 07/09/20 24 Active guaiFENesin-c odeine (TUSSI-ORGANI DIN NR) 100-10 MG/5ML SyrupIndicati ons:Acute cough Take 10 mL by mouth every 4 hours as needed for Cough. 300 mL 07/09/20 Active Additional Information Patient not taking.Reported on 02/19/2025 Ferrous Gluconate 240 (27 Fe) MG Tablet Take by mouth. Activ e methocarbamol (ROBAXIN) 750 MG Tablet Take 750 mg by mouth. 07/08/20 Active levothyroxine (SYNTHROID) 25 MCG Tablet Take 25 mcg by mouth. 12/15/19 Active aspirin-aceta minophen-caff eine (EXCEDRIN) 250-250-65 MG Tablet Take 1 Tablet by mouth. Active sodium chloride 1 GM Tablet Take 1 g by mouth. 07/31/20 Active senna-docusat e (SENOKOT S) 8.6-50 MG Tablet Take 2 Tablets by mouth. 07/08/20 24 Active carbidopa-lev odopa (SINEMET) 25-100 MG Tablet Take 2.5 Tablets by mouth 3 times daily. 1/2 hour before eating 675 Tablet 3 02/20/20 25 Active carbidopa-lev odopa (SINEMET) 25-100 MG Tablet Take 2 Tablets by mouth 3 times daily. 1/2 hour before eating 540 Tablet 1 08/19/20 24 025 Discontinued carbidopa-lev odopa (SINEMET) 25-100 MG Tablet TAKE 2 TABLETS BY MOUTH 3 TIMES DAILY 1/2 HOUR BEFORE EATING 540 Tablet 3 02/17/20 25 025 Discontinued(Re order) Encounters Date Type Department Care Team Description 02/19/2025 10:00 AM CDT Office Visit [facility] [place] [facility] [address] [place] [address] Lowell Mccallum MD Parkinson's disease without dyskinesia or fluctuating manifestations (HCC) (Primary Dx); Polyneuropathy; Sleep apnea, unspecified type; Other fatigue Discharge Disposition: Discharged to home or Selfcare 02/19/2025 Travel 02/15/2025 Refill [facility] [address] [place] [address] Lowell Mccallum MD Medication Refill 01/27/2025 Telephone [facility] [address] [place] [phone] Lowell Mccallum MD 12/16/2024 Telephone [facility] [address] [place] [address] Lowell Mccallum MD from Last 3 Months Social History Tobacco Use Types Packs/Day Years Used Date Smoking Tobacco: Former Cigarettes Smokeless Tobacco: Never Tobacco Cessation:Counseling Given: Not Answered Alcohol Use Standard Drinks/Week Comments Not Currently 0 (1 standard drink = 0.6 oz pur e alcohol) Sex and Gender Information Value Date Recorded Sex Assigned at Not on file Legal Sex Male 4:24 PM CDT Gender Identity Not on file Sexual Orientation Not on file Last Filed Vital Signs Vital Sign Reading Time Taken Comments Blood Pressure 122/72 02/19/2025 9:54 AM CDT Pulse 78 02/19/2025 9:54 AM CDT Temperature 36.7 C (98.1 F) 02/19/2025 9:54 AM CDT Respiratory Rate 16 02/19/2025 9:54 AM CDT Oxygen Saturation 84% 02/19/2025 9:54 AM CDT Inhaled Oxygen Concentration - - Weight 87.8 kg (193 lb 8 oz) 02/19/2025 9:54 AM CDT Height 182.9 cm (6') 02/19/2025 9:54 AM CDT Body Mass Index 26.24 02/19/2025 9:54 AM CDT Plan of Treatment Upcoming Encounters Date Type Department Care Team (Late st Contact Info) Description 08/24/2025 11:00 AM MANAGER OF MAINTENANCE Office Visit [facility] [address] [place] [phone] Lowell Mccallum MD [address] [place] [phone] Health Maintenance Due Date Last Done Comments Hepatitis C Virus (HCV) Screening 1945 Zoster Immunization (1 of 2) 1996 SARS-COV-2 Immunization ( season) 2024 07/19/2023, 07/18/2022, 07/18/2022, Additional history exists Pneumococcal Immunization (50+ years) Completed 06/16/2022, 06/30/2020 TdaP Immunization Completed 06/16/2022 Respiratory Syncytial Virus (RSV) Immunization (Adult) Completed 07/24/2023 Influenza Immunization Completed , 07/24/2023, 07/23/2023, Additional history exists Hepatitis B Immunization Aged Out No longer eligible based on patient's age to complete this topic Human Papillomavirus (HPV) Immunization Aged Out No longer eligible based on patient's age to complete this topic Meningococcal Immunization (ACWY) Aged Out No longer eligible based on patient's age to complete this topic Rotavirus Immunization Aged Out No lo nger eligible based on patient's age to complete this topic Insurance MEDICARE C [facility] Care Teams Home Care Coordinator Relationship Specialty Start Date End Date Demetrius Nixon MD [address] [place] [address] PCP - General Internal Medicine 05/16/24 Lowell Mccallum MD [address] [place] [address] Consulting Physician Neurology 05/16/24
--- OUTSIDE RECORDS SUMMARY | 2025-03-04 08:21 | XMS_ITS | Clinical Summary ---
Author Organization [facility] Address [address] [address] Care Team Providers Care Tape Edge Machine Operator Name Role Phone Demetrius Nixon Primary Care Provider [phone] Allergies No known active allergies Medications Cholecalciferol (Vitamin D) 50 MCG (1999 UT) capsule Take 1 capsule by mouth Active Multiple Vitamins-Minerals (multivitamin with minerals) tablet Take 1 tablet by mouth 1 (one) time each day Active aspirin (ST JUAN) 81 MG EC tablet Take 81 mg by mouth 1 (one) time each day Active Multiple Vitamins-Minerals (PreserVision AREDS 2+Multi Vit) capsule Take 1 tablet by mouth 1 (one) time each day Active metoprolol succinate XL (TOPROL-XL) 100 MG 24 hr tablet Take 1 tablet (100 mg total) by mouth 1 (one) time each day Do not crush or chew. 90 tablet 3 2 Active Fluticasone-Umeclid in-Vilant (Trelegy Ellipta) 100-62.5-25 MCG/ACT aerosol powder Inhale 1 puff 1 (one) time each day Active folic acid (FOLVITE) 1 MG tablet Take 1 mg by mouth 1 (one) time each day Active cyanocobalamin (VITAMIN B-12) 1000 MCG tablet Take 1,000 mcg by mouth 1 (one) time each day Active tamsulosin (FLOMAX) 0.4 MG 24 hr capsule Take 0.4 mg by mouth 1 (one) time each day Active Ferrous Gluconate (Iron) 240 (27 Fe) MG tablet Take by mouth at bed time Active rOPINIRole (REQUIP) 0.5 MG tablet Take 0.5 mg by mouth in the morning and 0.5 mg in the evening and 0.5 mg before bedtime. Active carbidopa-levodopa (PARCOPA) 25-100 MG per disintegrating tablet Take 2 tablets by mouth in the morning and 2 tablets in the evening and 2 tablets before bedtime. Active sodium chloride 1 g tablet Take 1 tablet (1 g total) by mouth in the morning and 1 tablet (1 g total) in the evening. 180 tablet 3 5 Active lisinopril 10 MG tablet TAKE 1 TABLET BY MOUTH DAILY 90 tablet 3 5 Active amLODIPine (NORVASC) 10 MG tablet TAKE 1 TABLET BY MOUTH DAILY 90 tablet 3 5 Active Active Problems No known active problems Encounters Date Type Department Care Team Description 02/20/2025 Documentation Only [facility] [address] [place] [id number] Jerry Cortes MD 01/26/2025 Refill [facility] [address] [place] [address] Jerry Cortes MD 01/17/2025 Documentation Only [facility] [address] [place] [address] Ines Guzmán 12/23/2024 Refill [facility] [address] [place] [address] Jerry Cortes MD from Last 3 Months Family History Medical History Relation Comments Heart disease Father Diabetes Mother Relation Status Comments Father Mother Social History Tobacco Use Types Packs/Day Years Used Date Smoking Tobacco: Former Cigarettes Q uit: 1982 Smokeless Tobacco: Never Tobacco Cessation:Counseling Given: Not Answered Alcohol Use Standard Drinks/Week Comments Not Currently 0 (1 standard drink = 0.6 oz pur e alcohol) Sex and Gender Information Value Date Recorded Sex Assigned at Not on file Legal Sex Male 3:34 PM EDT Gender Identity Not on file Sexual Orientation Not on file Last Filed Vital Signs Vital Sign Reading Time Taken Comments Blood Pressure 116/63 09/30/2024 1:15 PM SUPERVISOR S[employer]KE [employer]OL Pulse 99 09/30/2024 1:15 PM SUPERVISOR [employer] Temperature 36.4 C (97.6 F) 09/30/2024 1:15 PM SUPERVISOR SMOKE CONTROL Respiratory Rate - - Oxygen Saturation 97% 09/30/2024 1:15 PM SUPERVISOR SMOKE CONTROL Inhaled Oxygen Concentration - - Weight 84.4 kg (186 lb) 09/30/2024 1:15 PM SUPERVISOR SMOKE CONTROL Height 182.9 cm (6') 09/30/2024 1:15 PM SUPERVISOR S[employer]KE CONTROL Body Mass Index 25.23 09/30/2024 1:15 PM SUPERVISOR SMOKE CONTROL Plan of Treatment Upcoming Encounters Date Type Department Care Team (Late st Contact Info) Description 03/31/2025 10:15 AM CDT Office Visit [facility] [address] [place] [address] Jerry Cortes MD [address] [place] [address] Health Maintenance Due Date Last Done Comments Pneumococcal Vaccine: 50+ Years (2 of 2 - PCV) 06/30/2021 06/30/2020 Pneumococcal Vaccine: Peds (0 to 5 Years) and At-Risk Patients (6 to 49 Years) Discontinued 06/30/2020 Colorectal Cancer Screening: Colonoscopy Discontinued 03/25/2021 Influenza Vaccine Completed 07/30/2024, , 07/19/2022, Additional history exists Hepatitis B Vaccine Aged Out No longe r eligible based on patient's age to complete this topic Insurance [facility] Medicare Care Teams Tape Edge Machine Operator Relationship Specialty Start Date End [place] [address] PCP - General Internal Medicine 03/25/24
--- OUTSIDE RECORDS SUMMARY | 2025-03-04 08:21 | XMS_ITS | Encounter Summary ---
Author Organization [facility] Address [address] [facility] [place] [address] Phone Care Team Providers Care Varnish Melter Name Role Phone Demetrius Nixon MD Primary Care Provider [phone] Lowell Mccallum MD Unavailable [phone] Encounter Details Date Type Department Care Team (Late Contact Info) Description 07/09/2024 Telephone [facility] [address] [place] [address] Bhargav Simpson, PAC [address] [place], [place] [id number] Social History Tobacco Use Types Packs/Day Years Used Date Smoking Tobacco: Former Cigarettes Smokeless Tobacco: Never Alcohol Use Standard Drinks/Week Comments Not Currently 0 (1 standard drink = 0.6 oz pur e alcohol) Sex and Gender Information Value Date Recorded Sex Assigned at Not on file Legal Sex Male 4:24 PM CDT Gender Identity Not on file Sexual Orientation Not on file documented as of this encounter Plan of Treatment Upcoming Encounters Date Type Department Care Team (Late Contact Info) Description 08/24/2025 11:00 AM PIPELINE INSPECTOR [facility] [address] [place] [address] Lowell Mccallum MD [address] [place] [phone] documented as of this encounter Visit Diagnoses Diagnosis Acute cough- Primary Other chronic pain documented in this encounter Care Teams Varnish Melter Relationship Specialty Start Date End Date Demetrius Nixon MD [address] [place] [address] PCP - General Internal Medicine 05/16/24 Lowell Mccallum MD [address] [place] [phone] Consulting Physician Neurology 05/16/24 documented as of this encounter
--- OUTSIDE RECORDS SUMMARY | 2025-03-04 08:21 | XMS_ITS | Data Portability ---
Author [facility] Address [address] [place] [address] Assessment Encounter Date Assessment Date Assessment LastModified by Organization Details LastModified Time 06/16/2022 06/16/2022 I discussed the pt's presentation, findings, assessment and plan with the resident during the time of service. I agree with the resident's findings, assessment and plan as documented in the note. Dr. Kan [email or web address] Not available 06/19/2022 12:25:20 Plan of Treatment Reminders Order Date Submit Date Provider Last Modified By Organization Details Last Modified Time Details Appointments None recorde d. Lab HbA1c (hemogl obin A1c), blood 022 06/16/20 22 [email or web address] In-Office Order, Internal Use Only DO Not Attach Compendium DO Not Attach Compendium, Do Not Delete/merge, [id number] 16:13:33 Referral None recorde d. Procedures None recorde d. Surgeries None recorde d. Imaging None recorde d. Medication Orders None recorde d. Patient TargetsNo targets recorded. Patient InstructionsNo instructions recorded. Reason for Referral None Reported. Results Created Date Observation Date Name Description Value Unit Range Abnormal Flag Note LastModifiedBy Organization Detail LastModifiedTime 06/16/20 22 06/16/2022 HbA1c (hemo globi n A1c), blood HbA1c 5.8 Not Available In-Office Order Internal Use Only DO Not Attach Compendium DO Not Attach Compendium, Do Not Delete/merge, [id number] 06/16/2022 15:23:37 Result Notes None recorded. Problems No Known Problems Procedures Surgical History Date Name Laterality Status Provider Name and Address Organization Details Recorded Time procedure on eye completed Fanny Sandra MA [facility] 06/16/2022 15:22:03 Imaging Results None recorded. Procedure Notes None recorded. Medical Equipment None Reported. Allergies No known drug allergies Medications Name Sig Start Date Stop Date Status Note LastModified by Organization Details LastModified Time ketoconazol e 2 % shampoo active Not Available Not Available Not Available metoprolol succinate ER 50 mg tablet,exte nded release 24 hr 06/16 completed Not Available Not Available Not Available ondansetron HCl 8 mg tablet active Not Available Not Available Not Available metoprolol succinate ER 100 mg tablet,exte nded release 24 hr active Not Available Not Available Not Available prochlorper azine maleate 10 mg tablet active Not Available Not Available No t Available amlodipine 5 mg-benazepr il 10 mg capsule 06/16 completed Not Available Not Available Not Available ropinirole 0.25 mg tablet 06/16 completed Not Available Not Available Not Available amlodipine 10 mg tablet active Not Available Not Available Not Available dexamethaso ne 4 mg tablet active Not Available Not Available Not Available lisinopril 10 mg tablet active Not Available Not Available Not Available gabapentin 300 mg capsule 06/16 completed Not Available Not Available Not Available folic acid 1 mg tablet active Not Available Not Available Not Available Longs Adult Low Strength ASA 81 mg tablet,nessa yed release Take 1 tablet every day by oral route. active OTC Not Available Not Available No t Available hydrochloro thiazide 25 mg tablet 06/16 completed Not Available Not Available Not Available gabapentin 100 mg capsule active Not Available Not Available Not Available ketoconazol e 2 % topical cream active Not Available Not Available Not Available betamethaso ne dipropionat e 0.05 % lotion active Not Available Not Available Not Available amlodipine 10 mg-benazepr il 20 mg capsule 06/16 completed Not Available Not Available Not Available iron active otc Not Available Not Availa ble Not Available Multiple Vitamins active otc Not Available Not Available Not Available alendronate -vitamin D3 active otc Not Available Not Available Not Available PreserVisio n AREDS active OTC Not Available Not Available Not Available Trelegy Ellipta 100 mcg-62.5 mcg-25 mcg powder for inhalation active Not Available Not Available N ot Available Fish Oil 1,200 mg (144 mg-216 mg) capsule Take by oral route. active OTC Not Available Not Available No t Available Paxlovid 300 mg (150 mg x 2)-100 mg tablets in a dose pack Follow dose pack intructio ns daily x 5 d duration active Not Available Not Available No t Available Vitals Date Recorded Body height Body mass index (BMI) Body weight Heart rate Respiratory rate Oxygen saturation Oxygen saturation in Arterial blood by Pulse oximetry Body temperature Systolic blood pressure Diastolic blood pressure Provider Name and Address Organization Details Last Updated DateTime 185.42 cm 23.2 kg/m2 14816.8 5 g 92 /min 16 /min 95 % 95 % 96 [degF] 146 mm[Hg] 64 mm[Hg] Fanny Sandra MA [facility] 15:10:41 Social History Question Answer Notes LastModified by Organizat ion Details LastModified Time Tobacco Smoking Status Former Smoker quit about 40 years ago Fanny Sandra MA null, [place] - [facility] 06/16/2022 15:18:46 Do You Have An Advance Directive? No Suze Feliz Information not available 06/16/2022 How Many Years Have You Consumed Alcohol? 38 Started Drinking Around 18- ESTES Went To Non Alcohol Years About 20 Years Ago. Information not available 06/16/2022 In The 14 Days Before Symptom Onset, Have You Had Close Contact With A Laboratory-confir med COVID-19 While That Case Was Ill? No Information not available 06/16/2022 In The 14 Days Before Symptom Onset, Have You Had Close Contact With A Person Who Is Under Investigation For COVID-19 While That Person Was Ill? No Information not available 06/16/2022 Have You Been To An Area Known To Be High Risk For COVID-19? No Information not available 06/16/2022 What Was The Date Of Your Most Recent Tobacco Screening? 06/16/2022 Information not available 06/16/2022 What Is Your Current Pack Years? 20-29packye ars Information not available 06/16/2022 What Is Your Relationship Status? Information not available 06/16/2022 Are You Sexually Active? Yes Information not available 06/16/2022 Do You Have Smoke And Carbon Monoxide Detectors In Your Home? Yes Information not available 06/16/2022 At What Age Did You Start Smoking Tobacco? 14 Information not available 06/16/2022 Are You Passively Exposed To Smoke? No Information no t available 06/16/2022 Has Tobacco Cessation Counseling Been Provided? Yes Information not available 06/16/2022 On What Date Was Tobacco Cessation Counseling Provided? 06/16/2022 Information not available 06/16/2022 How Many Years Have You Smoked Tobacco? 22 Information not available 06/16/2022 Sex: Male Functional Status Question Answer Note LastModified by Organizat ion Details LastModified Time What is your level of alcohol consumption? 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 Family History Relationship Description Onset Age of this Age Resolved Age Notes LastModified by Organization Details LastModified Time Mother Diabetes mellitus [email or web address] Not available 06/16 15:16:21 Notes:No hx of cancer Medical History No medical history recorded. Immunizations Vaccine Type Date Status Note Provider Nam e and Address Organization Details Recorded Time COVID-19, mRNA, LNP-S, PF, 100 mcg/0.5mL dose or 50 mcg/0.25mL dose 1 completed Fanny Sandra MA null, [place] - [facility] 06/16/2022 15:24:03 COVID-19, mRNA, LNP-S, PF, 100 mcg/0.5mL dose or 50 mcg/0.25mL dose 1 completed YUNIEL Ballesteros, [place] - [facility] 06/16/2022 15:24:19 COVID-19, mRNA, LNP-S, PF, 100 mcg/0.5mL dose or 50 mcg/0.25mL dose 1 completed YUNIEL Ballesteros, [place] - [facility] 06/16/2022 15:24:41 COVID-19, mRNA, LNP-S, PF, 100 mcg/0.5mL dose or 50 mcg/0.25mL dose 2 completed Fanny Sandra MA null, [place] - [facility] 06/16/2022 15:25:02 Tdap 2 completed Amandeep Kan MD Attn: Accounting,[address] [facility], [place], [address], [place] - [facility] 06/19/2022 12:23:16 Pneumococcal conjugate PCV20, polysaccharide [id number] conjugate, adjuvant, PF 2 completed Amandeep Kan MD Attn: Accounting[address] [facility], [place], [address], [place] [facility] 06/19/2022 12:23:16 Past Encounters Encounter ID Performer Location Encounter Start Date Encounter Closed Date Diagnosis/Indication Diagnosis SNOMED-CT Code Diagnosis ICD10 Code Diagnosis Note [id number] Amandeep Kan MD [place] [address] [place] 4 [facility] [address] [place] [address] 06/16/2022 14:48:03 06/20/2022 13:15:31 Prediabetes 063827214 R73.03 Discussed diet at length including healthier food options, increase vegetable and fiber intake, reduce salt intake, incorporat e yoga/stret ross practices and exercise 30 min 5 x per week to improve cardiovasc ular health. Pt has neuropathy but does not like gabapentin since makes him feel tired Pt declined nutritioni st at this time understand s what he needs to dodid not recommend weight loss as pt BMI 23 Hyponatremia 11889870 E8 7.1 under care of nephrology Dr Cortes - appt coming up 06/20 for follow up post hospital stay requiring urea-na, hypertonic saline, and mutliple interventi ons to correct sodium 123 at lowest and was DC from hospital 06/[address] Cortes has drawn labs today and took CBC and UA and CMP - no need to redo here in clinic Essential hypertension 74000459 I10 amlodipine lisinopril currently BP 146/64 -- usually controlled but today elevatedHR unremarkab leusually controlled BP but currently higher than usual does not require refills at this timewill discuss HTN meds with Dr Cortes Active or passive immunization 602573710 Z23 need for Tdap booster and pneumoniaw ill add Prevnar 20 qONCE Health Concerns Section Related Observation LastModified by Organization Detai ls LastModified Time None Recorded Concern Status LastModified by Organization Details LastModified Time None Recorded Advance Directives Directive N: Suze Feliz Payers Encounter Date Sequence Insurance Name Policy Number Policy Holguin Covered Member ID Holguin Member ID Guarantor Name 06/16/2022 1 [facility] (MEDICARE REPLACEMENT/A DVANTAGE - PPO) [id number] [id number] Ray Feliz Notes Date Note Type Note Provider Name and Address Organization Details Recorded Time 06/16/2022 text/html 76 yo M presents to clinic post hospital follow up for hyponatremia which took several days to resolve. Pt under care of Dr Cortes for nephrology. Pt endorses fatigue but states probably gabapentin induced with addition of HCTZ which also wasted sodium. 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
--- OUTSIDE RECORDS SUMMARY | 2025-03-04 08:22 | XMS_ITS | Clinical Summary ---
Author Organization [facility] Address [address] [place] [address] Care Team Providers Care Fbi Investigator Name Role Phone Jerry Cortes MD Unavailable [phone] Betito Servin MD PhD Unavailable [phone] Isaias Moore MD Unavailable [phone] Lukas Rose MD Unavailable Demetrius Nixon MD Primary Care Provider [phone] Allergies No known active allergies Medications ferrous sulfate ER 324 mg (65 mg iron) EC tabletIndications: Iron Deficiency Anemia Take 65 mg by mouth daily with breakfast Active multivitamin capsuleIndications :Vitamin Deficiency Take 1 capsule by mouth crew car driver before breakfast Active cholecalciferol (VITAMIN D-3) 2000 unit capsuleIndications :Vitamin D Deficiency Take 1 capsule (2,000 Units total) by mouth every morning Active cyanocobalamin (Vitamin B-12) 1,000 mcg tabletIndications: Prevention of Vitamin B12 Deficiency TAKE 1 TABLET BY MOUTH DAILY 120 tablet 3 01/02/20 24 Active Trelegy Ellipta 100-62.5-25 mcg inhalerIndications :Bronchospasm Prevention with COPD USE 1 INHALATION BY MOUTH DAILY 180 each 3 05/29/20 24 Active acetaminophen 500 mg capsuleIndications :Fever,Pain Take 2 capsules (1,000 mg total) by mouth every 6 (six) hours 07/08/20 24 Active carbidopa-levodopa (SINEMET) 25-100 mg per tabletIndications: Parkinsonism Take 1 tablet by mouth 3 (three) times a day before meals 07/08/20 24 025 Active senna-docusate (PERICOLACE) 8.6-50 mgIndications:cons tipation Take 2 tablets by mouth 2 (two) times a day 07/08/20 24 Active amLODIPine (NORVASC) 10 mg tabletIndications: hypertension Take 1 tablet (10 mg total) by mouth crew car driver before breakfast Active lisinopriL (PRINIVIL,ZESTRIL) 10 mg tabletIndications: hypertension Take 1 tablet (10 mg total) by mouth every morning 08/05/20 24 Active tamsulosin (FLOMAX) 0.4 mg extended release capsuleIndications :benign prostatic hyperplasia with lower urinary tract sx TAKE 1 CAPSULE(0.4 MG) BY MOUTH DAILY 90 capsule 1 11/05/19 25 Active sodium chloride 1 gram tabletIndications: hyponatremia prevention Take 1 tablet (1 g total) by mouth 2 (two) times a day 60 tablet 3 11/14/19 25 Active vit A/vit C/vit E/zinc/copper (PRESERVISION AREDS ORAL)Indications:e ye health Take 1 tablet by mouth every morning Active acetaminophen-aspi rin-caffeine (EXCEDRIN MIGRAINE) 250-250-65 mg per tabletIndications: Migraine Take 1 tablet by mouth every 6 (six) hours as needed for headaches Active levothyroxine (SYNTHROID) 25 mcg tabletIndications: hypothyroidism TAKE 1 TABLET BY 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 Indications: a type of movement disorder called parkinsonism 12/11/19 25 Active carbidopa-levodopa ODT (PARCOPA) 25-100 mg per disintegrating tabletIndications: Parkinsonism Take 2.5 tablets by mouth 3 (three) times a day. 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 No orthostasis. Reid catheter in place. WIll monitor response. Hypertension, essential 11/24/2024 Assessment & Plan (11/24/2024 1:40 PM [facility]): Stable on amlodipine and tamsulosin. Montior for orthostasis or dizziness or other symptoms of low blood pressure. SIADH (syndrome of inappropriate ADH production) 11/24/2024 Assessment & Plan (11/24/2024 1:40 PM [facility]): Reviewed improved sodium with reid placmeent. Montior fluid intake and ogoing surveillance of sodium levels. 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 Blood glucose abnormal 08/12/2024 Urinary retention 07/02/2024 Assessment & Plan (11/24/2024 1:39 PM [facility]): Reid catheter in place. Resolution of hematuria. Anticiapting aquaturp on . Montior for recurrent o fhematuria. Assessment & Plan (09/28/2024 2:07 PM [facility]): Montior urinary retention and will continue to [...] 06/30/2024 Assessment & Plan (09/28/2024 2:07 PM [facility]): Continue f/u with neuorology and will follow [...] denied rehab. Need to perform P2P. [phone] option 5, due 07/07 by 10:00 AM - 07/07: Pending authorization to [facility] Closed displaced intertrochanteric fracture of r ight femur 06/29/2024 Assessment & Plan (09/28/2024 2:07 PM [facility]): Continues to improve ambulation. Reivweed fall prevention. [...] 12/28/2022 Assessment & Plan (09/28/2024 2:07 PM [facility]): As above. Adenocarcinoma, lung, right 09/18/2022 Cancer Staging:Clinical stage from 09/20/2022:Stage IIIB(cT1b, cN3, cM0) - Signed by Betito Servin MD PhD on 11/22/2022 Assessment & Plan (11/24/2024 1:39 PM [facility]): COntinue f/u with oncology and will monitor response. No change at the present time. Assessment & Plan (09/28/2024 2:07 PM [facility]): Continue f/uw with pulmonary. Reviewed pulmonary hygiene and will montior ersponse. Mediastinal lymphadenopathy 08/25/2022 Overview (08/25/2022): Added automatically from request for surgery [id number] Hilar lymphadenopathy 08/25/2022 Overview (08/25/2022): Added automatically from request for surgery [id number] CEM (obstructive sleep apnea) 05/25/2022 Memory changes [...] 08/03/2021 Assessment & Plan (09/28/2024 2:06 PM [facility]): Continues f/u with neuorlogy. 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 Fatigue 03/17/2021 Nocturia 03/17/2021 History of colon polyps 03/02/2021 Overview (03/02/2021): Added automatically from request for surgery [id number] [facility] without rheumatoid factor 05/23/2017 Assessment & [...] up in 4 mo, sooner if needed FDC use of drug 05/23/2017 Blindness of one eye 01/20/2015 Overview (01/25/2017): Blind in one eye Lumbar arthritis 01/20/2015 Overview (01/25/2017): Lumbar arthritis Osteoarthritis of hand 01/20/2015 Overview (01/25/2017): Osteoarthritis - hand joint Hypertension 07/23/2014 Overview (01/25/2017): Hypertension Assessment & Plan (09/28/2024 2:06 PM [facility]): Stable on regiemn as above. Continue on metoprolol XL and lisinopril and will follo response. Assessment & Plan (07/02/2024 9:37 AM CDT): - Continue Metoprolol XL 100mg daily Assessment & Plan (11/08/2021 11:52 AM [facility]): Long discussion today. His blood pressures that I am seeing here in the office or at least 20 points lower than those checked nearly simultaneously with his machine. Will add metoprolol 50 mg XL daily check renal artery ultrasound and consider obtaining a new machine. RTO 1 month Antinuclear factor positive 05/05/2014 Overview (01/25/2017): GAY+ Assessment & Plan (05/29/2018 9:11 AM CDT): H/o +gay. Will recheck serologies today Drug indicated 03/07/2010 Overview (01/25/2017): LONG-TERM USE MEDS NEC Neuropathy due to Sjogren's syndrome Overview (01/25/2017): Sjogrens syndrome Assessment & Plan (09/28/2024 2:05 PM [facility]): Continues on therapy and supporitve measures with neuropathy. Assessment & Plan (05/29/2018 9:14 AM CDT): See # 1 Assessment & Plan (11/28/2017 3:59 PM [facility]): He was last seen in our office [...] his insurance. I suggested that he try [facility] [place] or the [facility] [place]. Hereditary and idiopathic neuropathy Anemia Encounters Date Type Department Care Team Description 02/27/2025 1:30 PM CDT Home Care Visit [address] [place] [address] Abeba Baptiste, DARIAN EMPLOYEE ADVISER HOME VISIT 02/26/2025 7:00 PM CDT - 02/26/2025 11:59 PM CDT Hospital Encounter [facility] [address] [place] [address] CEM (obstructive sleep apnea) Discharge Disposition: Discharge to home or self care 02/25/2025 [facility]phone [facility] [address] [address] Demetrius Nixon MD 02/24/2025 Telephone [facility] [address] [phone] Demetrius Nixon MD Additional Services Or Orders 02/20/2025 3:00 PM CDT Home Care Visit [address] [place] [address] Abeba Baptiste, DARIAN EMPLOYEE ADVISER REASSESSMENT 02/20/2025 Telephone [facility] [address] [phone] Demetrius Nixon MD 02/18/2025 10:00 AM CDT Home Care Visit [address] [place] [address] Abeba Baptiste, EMPLOYEE ADVISER EMPLOYEE ADVISER HOME VISIT 02/16/2025 10:45 AM CDT Office Visit [facility] [address] [place] [address] Zurdo Mallory MD CEM (obstructive sleep apnea) (Primary Dx) 02/16/2025 Telephone [facility] [address] [phone] Demetrius Nixon MD 02/11/2025 11:15 AM CDT Home Care Visit [address] [place] [address] Abeba Baptiste, DARIAN EMPLOYEE ADVISER HOME VISIT 02/09/2025 3:00 PM CDT Home Care Visit [address] [place] [address] Abeba Baptiste, EMPLOYEE ADVISER EMPLOYEE ADVISER HOME VISIT 02/06/2025 2:30 PM CDT Office Visit [facility] [address] [place] [address] [address] [place] [address] Isaias Moore MD Adenocarcinoma, lung, right (HCC) (Primary Dx); Hypothyroidism, unspecified type; Other fatigue 02/06/2025 2:00 PM CDT Lab [facility] [address] [place] [address] Adenocarcinoma, lung, right (HCC); Other fatigue 02/06/2025 Telephone [facility] [address] [phone] Demetrius Nixon MD 02/05/2025 Telephone [facility] [address] [place] [address] Medical Office [address] [place] [phone] Tresa Amador CLT 02/04/2025 3:15 PM CDT Home Care Visit [address] [place] [address] Abeba Baptiste, DARIAN EMPLOYEE ADVISER HOME VISIT 02/02/2025 2:30 PM CDT Home Care Visit [address] [place] [address] Abeba Baptiste, DARIAN EMPLOYEE ADVISER HOME VISIT 01/30/2025 12:23 PM CDT - 01/30/2025 11:59 PM CDT Hospital Encounter [facility] [address] [place] [address] Adenocarcinoma, lung, right (HCC); Other fatigue Discharge Disposition: Discharge to home or self care 01/29/2025 Telephone [facility] [address] [place] [address] Saskia Owen 01/29/2025 Home Care Visit [address] [place] [address] Alecia Driscoll RN NURSE MED RECON FOR THERAPY 01/28/2025 2:00 PM CDT Home Care Visit [address] [place] [address] Abeba Baptiste, EMPLOYEE ADVISER EMPLOYEE ADVISER OASIS RECERTIFICATION 01/28/2025 Plan of Care Documentation [address] [place] [address] 01/27/2025 2:50 PM CDT Lab [address] 01/27/2025 1:00 PM CDT Home Care Visit [address] [place] [address] Aziza Coon, PT PT REASSESSMENT 01/27/2025 Home Care Visit [address] [place] [address] Aziza Coon, PT PT DISCIPLINE DISCHARGE 01/23/2025 3:00 PM CDT Home Care Visit [address] [place] [address] Abeba Baptiste, EMPLOYEE ADVISER EMPLOYEE ADVISER INITIAL EVALUATION 01/23/2025 Telephone [facility] [address] [phone] Demetrius Nixon MD 01/22/2025 Telephone [facility] [address] [phone] Demetrius Nixon MD Additional Services Or Orders 01/21/2025 10:00 AM CDT Home Care Visit [address] [address] [place] [address] Bren Albright, IRRIGATION FLUME LAYER PT HOME VISIT 01/13/2025 1:00 PM CDT Home Care Visit [address] [place] [address] Porfirio Orozco, YUE SN DISCIPLINE DISCHARGE 01/12/2025 10:00 AM CDT Home Care Visit [address] [place] [address] Bren Albright, IRRIGATION FLUME LAYER PT HOME VISIT 01/09/2025 10:45 AM CDT Home Care Visit [address] [place] [address] Bren Albright, IRRIGATION FLUME LAYER PT HOME VISIT 01/09/2025 Home Care Visit [place] [address] [address] [place] [address] Nika Fox, RN TELEPHONE ENCOUNTER 01/09/2025 Telephone [facility] [address] [phone] Demetrius Nixon MD Additional Services Or Orders 01/06/2025 1:00 PM CDT Office Visit [facility] - [facility] [address] [place] [address] [facility] [address] [place] [address] [place] [address] Urinary retention (Primary Dx) 01/05/2025 12:30 PM CDT Home Care Visit [address] [address] [place] [address] Rowena Pena, OT OT INITIAL EVALUATION 01/02/2025 12:15 PM CDT Home Care Visit [address] [place] [place] [address] Stephy Mendieta, PT PT OASIS RESUMPTION OF CARE 01/02/2025 Plan of Care Documentation [address] [address] [place] [address] 12/31/2024 Telephone [facility] [address] [place] [address] Demetrius Nixon MD 12/31/2024 Telephone [facility] Services [address] [place] [address] [address] [place] [address] Steph Garcia 2024 7:30 AM [facility] - 2024 9:40 AM [facility] Surgery [facility] [address] [place] [address] Douglas Dykes MD TRANSURETHRAL WATERJET ABLATION OF PROSTATE 2024 7:22 AM [facility] Anesthesia Event [facility] [address] [place] [address] Emeli Juarez DO Brake, Barbara E., DIAL MOUNTER 2024 5:32 AM [facility] - 12/30/2024 1:52 PM CDT Hospital Encounter [address] [address] Douglas Dykes MD Benign prostatic hyperplasia with urinary retention (Primary Dx); BPH with obstruction/lower urinary tract symptoms Discharge Disposition: Discharge to home or self care 2024 Home Care Visit [place] [address] [address] [place] [address] Stephy Mendieta, PT PT OASIS TRANSFER W/OUT DC 12/24/2024 2:00 PM [facility] Home Care Visit [address] [place] [address] Bren Albright PTA PT HOME VISIT 12/22/2024 10:30 AM [facility] Home Care Visit [address] [place] [address] Rowena Pena, OT OT REASSESSMENT 12/22/2024 Home Care Visit [address] [place] [address] Rowena Pena, OT OT DISCIPLINE DISCHARGE 12/18/2024 11:00 AM [facility] Home Care Visit [address] [place] [address] Ivis Rahman COTA OT HOME VISIT 12/17/2024 Home Care Visit [address] [place] [address] Nika Fox, RN EMPLOYEE ADVISER DISCIPLINE DISCHARGE 12/17/2024 Telephone [facility] [address] [phone] Demetrius Nixon MD 12/16/2024 10:00 AM [facility] Home Care Visit [address] [place] [address] Bren Albright PTA PT HOME VISIT 12/16/2024 Telephone [facility] [address] [phone] Demetrius Nixon MD 12/11/2024 11:00 AM [facility] Home Care Visit [address] [place] [address] Abeba Baptiste, EMPLOYEE ADVISER EMPLOYEE ADVISER HOME VISIT 12/11/2024 9:00 AM [facility] Home Care Visit [address] [place] [address] Ivis Rahman COTA OT HOME VISIT 12/10/2024 2:15 PM [facility] Home Care Visit [address] [place] [address] Bren Albright PTA PT HOME VISIT 12/08/2024 [facility]phone [facility] [address] [address] Demetrius Nixon MD 12/05/2024 1:15 PM [facility] Home Care Visit [address] [place] [address] Bren Albright PTA PT HOME VISIT from Last 3 Months Immunizations Immunization Administration Dates Next Due Influenza, Quadrivalent, Hig h Dose, Preservative Free, Intrr 07/24/2023,07/18/2022,07/19/2021,06/30 Influenza, Quadrivalent, Spl it, Preservative Free, Intramuscular 07/29/2019 Influenza, Trivalent, High D ose, Split, Preservative Free, Intramuscular 07/30/2024,07/28/2018,07/20/2017,08/11,07/29/2013 Influenza, Trivalent, IM (MDV) 07/23/2023 Influenza, Unspecified 07/23/2023,07/19/2022, Moderna Sars-cov-2 Bivalent Vaccine 50 Mcg/0.5 mL (12+ YRS)-Blue/Lazo 07/18/2022 PPD TEST 07/24/2024,07/18/2024 Pfizer SARS-CoV-2 Monovalent Vaccination (12+ Yrs) PURPLE 01/04/2021,01/04/2021,12/02/2020,12/02 Pneumococcal Conjugate Pcv20 06/16/2022 Pneumococcal Polysaccharide PPV23 06/30/2020 RSV Vaccine, Pref, Recombina nt, Subunit, Adjuvanted, PF, IM (Arexvy) 07/24/2023,07/23/2023 Tdap 06/16/2022 Surgical History Surgery Date Site/Laterality Comments EYE SURGERY Right removed due to detached retina - around 2014. Prosthetic placed COLONOSCOPY last on around 2018 FEMUR FRACTURE SURGERY 06/29/2024 Right romulo placed Medical History Medical History Date Comments Hx Other Medical 2005 fractured verte bra, R wrist Hypertension Sleep difficulties Sleep apnea cpap nightly Lung cancer (HCC) Family History Medical History Relation Name Comments Heart disease Father Diabetes Mother Anesthesia problems Neg Hx Malig Hypertension Neg Hx Malig Hyperthermia Neg Hx Pseudochol deficiency Neg Hx Relation Name Status Comments Father Mother Social History Tobacco Use Types Packs/Day Years Used Date Smoking Tobacco: Former Cigarettes 1 20 1 960 - 1979 Smokeless Tobacco: Never Tobacco Cessation:Counseling Given: Not Answered Alcohol Use Standard Drinks/Week Comments No 0 [...] materials from doctor or pharmacy Always 01/02/2025 [facility] Utilities Answer Date Recorded In the past 12 months has [facility] [employer], gas, oil, or water goAct threatened to shut off services in your [...] How often do you attend chur or latter day services? More than 4 times per year 12/29/2024 Do you belong to any clubs o r organizations such as confucianist groups, unions, fraternal or athletic groups, or [...] staff should administer the PHQ-9) 0 12/29/2024 [facility] - Occupational Stress Questionnaire Answer Date Recorded [...] any time in the past 12 m [facility], were you homeless or living in a long-term (including now)? No 12/29/2024 Personal Safety Answer Date Recorded Have you ever been in or are you currently in a harmful physical or emotional relationship or is someone making you feel afraid or unsafe? Denies 2024 Sex and Gender Information Value Date Recorded Sex Assigned at Not on file Legal Sex Male 11:58 PM [facility] Gender Identity Not on file Sexual Orientation Not on file Obstetrics History Last Filed Vital Signs Vital Sign Reading Time Taken Comments Blood Pressure 124/58 02/27/2025 2:44 PM CDT Pulse 67 02/27/2025 2:44 PM CDT Temperature 36.2 C (97.1 F) 02/27/2025 2:44 PM CDT Respiratory Rate 18 02/27/2025 2:44 PM CDT Oxygen Saturation 95% 02/27/2025 2:44 PM CDT Inhaled Oxygen Concentration - - Weight 88.8 kg (195 lb 12.8 oz) 025 10:37 AM CDT Height 182.9 cm (6' 0.01 ) 02/16/2025 1 0:37 AM CDT Body Mass Index 26.55 02/16/2025 10:37 AM CDT Plan of Treatment Health Maintenance Due Date Last Done Comments Hepatitis C Screening 1945 Hepatitis B Screening 1964 Zoster Vaccine (1 of 2) 1965 Well Visit 65+ 12/27/2011 Covid-19 Vaccine ( season) 2024 07/19/2023, 07/18/2022, 07/18/2022, Additional history exists Depression Screening 11/21/2025 11/21/2024, 09/12/2024, 08/07/2024, Additional history exists Fall Risk Assessment 12/30/2025 12/30/2024, 08/07/2024, 03/18/2024, Additional history exists DTaP/Tdap/Td Vaccine (2 - Td or Tdap) 06/16/2032 06/16/2022 Colon Cancer Screening-CT Colonography Discontinued 03/25/2021 Colon Cancer Screening-Colonoscopy Discontinued 03/25/2021 Colon Cancer Screening-DNA Stool Discontinued 03/25/20 Colon Cancer Screening-FIT Discontinued 03/25/2021 Colon Cancer Screening-FOBT Discontinued 03/25/2021 Colon Cancer Screening-Sigmoidoscopy Discontinued 03/25/2021 Colorectal Cancer Screening Discontinued Pneumococcal vaccine 65+ Completed 06/16/2022, 06/2020 Influenza Vaccine Completed 07/30/2024, , 07/23/2023, Additional history exists Abdominal Aortic Aneurysm (A AA) Screen Completed 01/30/2025, 07/25/2024 Goals Goal Patient Goal Type Associated Problems Recent Progress Patient-Stated? Author MARLENE General Goal - Patient is knowledgeable about condition when worsening and how to respond ACO Care Management On track(2023 11:02 AM [facility]) Dayton Frank, RN Note:Formatting of this note might be differ [id number]|2025-03-04 08:22:00|2025-03-04 08:22:00|XMS_ITS|BKG DAEMON|External Medical Summaries|[id number]|" Encounter Summary Created on: March 04, 2025 Ray Feliz : 1945 Sex: Male Author Organization [facility] Healthcare Address [address] [place] [address] Care Team Providers Care Fbi Investigator Name Role Phone Jerry Cortes MD Unavailable [phone] Betito Servin MD PhD Unavailable [phone] Isaias Moore MD Unavailable [phone] Lukas Rose MD Unavailable Demetrius Nixon MD Primary Care Provider [phone] Dayton Fernandez RN Unavailable [phone] Sherri Reyna NP Unavailable [phone] Dayton Fernandez RN Unavailable [phone] Encounter Details Date Type Department Care Team (Late st Contact Info) Description 08/25/2024 [facility]phone [facility] [address] [phone] Demetrius Nixon MD [address] [place] [address] Social History Tobacco Use Types Packs/Day Years Used Date Smoking Tobacco: Former Cigarettes Smokeless Tobacco: Never Alcohol Use Standard Drinks/Week Comments No 0 (1 standard drink = 0.6 oz pur e alcohol) OASIS D0700: Social Isolation Answer Da te Recorded Frequency of experiencing loneliness or isolatio n Never 08/03/2024 OASIS A1250: Transportation Answer Date Recorded Lack of Transportation (Medical) No 08/03/2024 Lack of Transportation (Non-Medical) No 08/03/2024 Patient Unable or Declines to Respond No 08/03/2024 OASIS B1300: Health Literacy Answer Lalito e Recorded Frequency of needing help to read materials from doctor or pharmacy Never 08/03/2024 [facility] Utilities Answer Date Recorded In the past 12 months has e electric, gas, oil, or water company threatened to shut off services in your home? No 08/29/2024 Humiliation, Afraid, Rape, and Kick questionnair e [...] the phone with family, friends, or neighbors? Three times a week 08/29/2024 How often do you get togethe r with friends or relatives? Three times a week 08/29/2024 How often do you attend [facility] or latter day services? More than 4 times per year 08/29/2024 Do you belong to any clubs o r organizations such as confucianist groups, unions, fraternal or athletic groups, or school groups? Yes 08/29/2024 How often do you attend meet ings of the clubs or organizations you belong to? More than 4 times per year 08/29/2024 Are you , , di vorced, , never , or living with a partner? 08/29/2024 AUDIT-C Answer Date Recorded Q1: How often do you have a drink containing alcohol? Never 06/29/2024 Q2: How many drinks containi ng alcohol do you have on a typical day when you are drinking? Patient does not drink Q3: How often do you have si x or more drinks on one occasion? Never 06/29/2024 Overall Financial Resource Strain (CARDIA) Answe r Date Recorded How hard is it for you to pa y for the very basics like food, housing, medical care, and heating? Not hard at all 08/29/2024 PHQ-2 Answer Date Recorded PHQ-2 Total Score (If total score is 3 or more points, staff should administer the PHQ-9) 0 08/07/2024 [place] [facility] - Occupational Stress Questionnaire Answer Date [...] the money to buy more. Never true 08/29/20 24 Within the past 12 months, t he food you bought just didn't last and you didn't have money to get more. Never true 08/29/2024 PRAPARE - Transportation Answer Date Re corded In the past 12 months, has l ack of transportation kept you from medical appointments or from getting medications? No 05/2024 In the past 12 months, has l ack of transportation kept you from meetings, work, or from getting things needed for daily living? No 08/29/2024 Housing Stability Vital Sign Answer Lalito e Recorded In the last 12 months, was t here a time when you were not able to pay the mortgage or rent on time? No 08/29/2024 In the past 12 months, how m any times have you moved where you were living? 0 08/29/2024 At any time in the past 12 m [facility], were you homeless or living in a long-term (including now)? No 08/29/2024 Personal Safety Answer Date Recorded Have you ever been in or are you currently in a harmful physical or emotional relationship or is someone making you feel afraid or unsafe? Denies 06/29/2024 Sex and Gender Information Value Date Recorded Sex Assigned at Not on file Legal Sex Male 11:58 PM [employer] Gender Identity Not on file Sexual Orientation Not on file documented as of this encounter Plan of Treatment Not on file documented as of this encounter Goals Goal Patient Goal Type Associated Problems Recent Progress Patient-Stated? Author MARLENE General Goal - Patient is knowledgeable about condition when worsening and how to respond ACO Care Management On track(2023 11:02 AM [employer]) Dayton Frank, YUE Note: Problem: Knowledge deficit related to signs [...] Diagnoses Not on filedocumented in this encounter Additional Health Concerns Infection Onset Date Last Indicated Resolved Time COVID: Suspected 11/08/2024 11/08/2024 11/08/2024 11:33 PM [employer] [employer] [employer] documented as of this encounter Care Teams [employer] Investigator Relationship Specialty Start Date End Date Demetrius Nixon MD [address] [place] [address] PCP - General Family Medicine 12/04/22 Jerry Cortes MD [address] [place] [address] [address] Consulting Physician Nephrology 05/29/22 Betito Servin MD PhD [address] [place] [address] [place] [address] Radiation Oncologist Radiation Oncology 09/27/22 Isaias Moore MD [address] [place] [address] [place] [address] Referring Physician Hematology and Oncology 09/28/22 Lukas Rose MD [address] [place] [address] [place] [address] Consulting Physician Pulmonary Disease 09/28/22 Dayton Fernandez, YUE [address] [place] [id number] Pill Maker 08/01/24 08/28/24 Sherri Reyna [employer] [address] [facility] [place] [address] Nurse Practitioner Family Medicine 08/01/24 11/06/24 Dayton Fernandez RN [address] [place] [id number] Pill Maker 11/13/24 12/11/24 documented as of this encounter "
--- OUTSIDE RECORDS SUMMARY | 2025-03-04 08:22 | XMS_ITS | Referral Summary ---
Author Organization [facility] Address [address] [place] [address] Care Team Providers Care Inspector Salvage Name Role Phone Jerry Cortes MD Unavailable [phone] Betito Servin MD PhD Unavailable [phone] Isaias Moore MD Unavailable [phone] Lukas Rose MD Unavailable Demetrius Nixon MD Primary Care Provider [phone] Encounters Date Type Department Care Team Description 02/27/2025 1:30 PM CDT Home Care Visit [facility] [address] [address] [address] [place] [address] Abeba Baptiste, DARIAN BILL COLLECTOR HOME VISIT 02/26/2025 7:00 PM CDT - 02/26/2025 11:59 PM CDT Hospital Encounter [facility] 1 [place] [address] CEM (obstructive sleep apnea) Discharge Disposition: Discharge to home or self care 02/25/2025 Telephone [facility] [address] [address] Demetrius Nixon MD 02/24/2025 Telephone [facility] [address] [phone] Demetrius Nixon MD Additional Services Or Orders 02/20/2025 Telephone [facility] [place] [address] [place] [address] Demetrius Nixon MD 02/20/2025 3:00 PM CDT Home Care Visit [address] [address] [address] [place] [address] Abeba Baptiste, BILL COLLECTOR BILL COLLECTOR REASSESSMENT 02/18/2025 10:00 AM CDT Home Care Visit [address] [address] [address] [place] [address] Abeba Baptiste, DARIAN BILL COLLECTOR HOME VISIT 02/16/2025 Telephone [facility] [address] [address] Demetrius Nixon MD 02/16/2025 10:45 AM CDT Office Visit [facility] [place] [facility] [address] [place] [address] [address] [place] [address] Zurdo Mallory MD CEM (obstructive sleep apnea) (Primary Dx) 02/11/2025 11:15 AM CDT Home Care Visit [address] [address] [address] [place] [address] Abeba Batpiste, DARIAN BILL COLLECTOR HOME VISIT 02/09/2025 3:00 PM CDT Home Care Visit [address] [address] [address] [place] [address] Abeba Baptiste, DARIAN BILL COLLECTOR HOME VISIT 02/06/2025 Telephone [facility] [address] [address] Demetrius Nixon MD 02/06/2025 2:00 PM CDT Lab [facility] [address] [facility] [address] [place] [address] Adenocarcinoma, lung, right (HCC); Other fatigue 02/06/2025 2:30 PM CDT Office Visit [facility] [place] [facility] [address] [place] [address] Office [facility] [address] [place] [address] Isaias Moore MD Adenocarcinoma, lung, right (HCC) (Primary Dx); Hypothyroidism, unspecified type; Other fatigue 02/05/2025 Telephone [facility] [address] [place] [address] [address] [place] [address] Tresa Amador, CLNighat 02/04/2025 3:15 PM CDT Home Care Visit [address] [place] [address] Abeba Baptiste, DARIAN BILL COLLECTOR HOME VISIT 02/02/2025 2:30 PM CDT Home Care Visit [address] [place] [address] Abeba Baptiste, DARIAN BILL COLLECTOR HOME VISIT 01/30/2025 12:23 PM CDT - 01/30/2025 11:59 PM CDT Hospital Encounter [facility] 1 [place] [address] Adenocarcinoma, lung, right (HCC); Other fatigue Discharge Disposition: Discharge to home or self care 01/28/2025 Plan of Care Documentation [address] [place] [address] 01/29/2025 Telephone [facility] 1 [place] [address] Saskia Owen 01/29/2025 Home Care Visit [address] [place] [address] Alecia Driscoll, YUE NURSE MED RECON FOR THERAPY 01/28/2025 2:00 PM CDT Home Care Visit [address] [place] [address] Abeba Baptiste SLP BILL COLLECTOR OASIS RECERTIFICATION 01/27/2025 Home Care Visit [address] [place] [address] Aziza Coon, PT PT DISCIPLINE DISCHARGE 01/27/2025 2:50 PM CDT Lab [address] 01/27/2025 1:00 PM CDT Home Care Visit [address] [place] [address] Aziza Coon, PT PT REASSESSMENT 01/23/2025 Telephone [facility] [address] [address] Demetrius Nixon MD 01/23/2025 3:00 PM CDT Home Care Visit [address] [place] [address] Abeba Baptiste, BILL COLLECTOR BILL COLLECTOR INITIAL EVALUATION 01/22/2025 Telephone [facility] [address] [address] Demetrius Nixon MD Additional Services Or Orders 01/21/2025 10:00 AM CDT Home Care Visit [address] [place] [address] Bren Albright, ORACLE FINANCIAL APPLICATION DEVELOPER PT HOME VISIT 01/13/2025 1:00 PM CDT Home Care Visit [address] [place] [address] Porfirio Orozco, YUE SN DISCIPLINE DISCHARGE 01/12/2025 10:00 AM CDT Home Care Visit [address] [place] [address] Bren Albright, ORACLE FINANCIAL APPLICATION DEVELOPER PT HOME VISIT 01/09/2025 Home Care Visit [address] [place] [address] Nika Fox, RN TELEPHONE ENCOUNTER 01/09/2025 Telephone [facility] [address] [address] [phone] Demetrius Nixon MD Additional Services Or Orders 01/09/2025 10:45 AM CDT Home Care Visit [address] [place] [address] Bren Albright PTA PT HOME VISIT 01/06/2025 1:00 PM CDT Office Visit [facility] [address] [facility] 11th [place] [address] [place] [address] Urinary retention (Primary Dx) 01/05/2025 12:30 PM CDT Home Care Visit [address] [place] [address] Rowena Pena, OT OT INITIAL EVALUATION 01/02/2025 Plan of Care Documentation [address] [address] [address] [place] [address] 01/02/2025 12:15 PM CDT Home Care Visit [address] [address] [address] [place] [address] Stephy Mendieta, PT PT OASIS RESUMPTION OF CARE 12/31/2024 Telephone [facility] [address] [address] Demetrius Nixon MD 12/31/2024 Telephone [facility] [address] [place] [address] [address] [place] [address] Steph Garcia 2024 5:32 AM PATIENT RELATIONS MANAGER - 12/30/2024 1:52 PM CDT Hospital Encounter [facility] 1 [place] [address] Douglas Dykes MD Benign prostatic hyperplasia with urinary retention (Primary Dx); BPH with obstruction/lower urinary tract symptoms Discharge Disposition: Discharge to home or self care 2024 Home Care Visit [address] [place] [address] Stephy Mendieta, PT PT OASIS TRANSFER W/OUT DC 2024 7:30 AM PATIENT RELATIONS MANAGER - 2024 9:40 AM PATIENT RELATIONS MANAGER Surgery [facility] Operating Room [address] [place] [address] Douglas Dykes MD TRANSURETHRAL WATERJET ABLATION OF PROSTATE 2024 7:22 AM PATIENT RELATIONS MANAGER Anesthesia Event [facility] Operating Room [address] [place] [address] Emeli Juarez DO Brake, Barbara E., MINE PATROL 12/24/2024 2:00 PM PATIENT RELATIONS MANAGER Home Care Visit [address] [place] [address] Bren Albright, ORACLE FINANCIAL APPLICATION DEVELOPER PT HOME VISIT 12/22/2024 Home Care Visit [address] [place] [address] Rowena Pena, OT OT DISCIPLINE DISCHARGE 12/22/2024 10:30 AM PATIENT RELATIONS MANAGER Home Care Visit [address] [place] [address] Rowena Pena, OT OT REASSESSMENT 12/18/2024 11:00 AM PATIENT RELATIONS MANAGER Home Care Visit [address] [place] [address] Ivis Rahman COTA OT HOME VISIT 12/17/2024 Home Care Visit [address] [place] [address] Nika Fox, RN BILL COLLECTOR DISCIPLINE DISCHARGE 12/17/2024 Telephone [facility] [address] [phone] Demetrius Nixon MD 12/16/2024 Telephone [facility] [address] [phone] Demetrius Nixon MD 12/16/2024 10:00 AM PATIENT RELATIONS MANAGER Home Care Visit [address] [place] [address] Bren Albright, ALYSSA PT HOME VISIT 12/11/2024 11:00 AM PATIENT RELATIONS MANAGER Home Care Visit [address] [place] [address] Abeba Baptiste, DARIAN BILL COLLECTOR HOME VISIT 12/11/2024 9:00 AM PATIENT RELATIONS MANAGER Home Care Visit [address] [place] [address] Ivis Rahman COTA OT HOME VISIT 12/10/2024 2:15 PM PATIENT RELATIONS MANAGER Home Care Visit [address] [place] [address] Bren Albright PTA PT HOME VISIT 12/08/2024 [facility]phone [facility] [address] [place] [address] Demetrius Nixon MD 12/05/2024 1:15 PM PATIENT RELATIONS MANAGER Home Care Visit [address] [place] [address] Bren Albright, ALYSSA PT HOME VISIT from Last 3 Months Allergies No known active allergies Medications ferrous sulfate ER 324 mg (65 mg iron) EC tabletIndications: Iron Deficiency Anemia Take 65 mg by mouth daily with breakfast Active multivitamin capsuleIndications :Vitamin Deficiency Take 1 capsule by mouth group program manager before breakfast Active cholecalciferol (VITAMIN D-3) 2000 [...] 1 tablet (10 mg total) by mouth group program manager before breakfast Active lisinopriL (PRINIVIL,ZESTRIL) 10 mg [...] tabletIndications: hypothyroidism TAKE 1 TABLET BY MOUTH COMMERCIAL INTERN BEFORE BREAKFAST 90 tablet 12/15/19 25 Active [...] type of movement disorder called parkinsonism 12/11/19 Active carbidopa-levodopa ODT (PARCOPA) 25-100 mg per disintegrating tabletIndications: Parkinsonism Take 2.5 tablets by mouth 3 (three) times a day. Per note from MD office/Dr Mccallum/Nika Fox RN 02/25/25 Indications: a type of movement disorder called parkinsonism 02/21/20 Active Active Problems Problem Noted Date Diagnosed Date BPH with obstruction/lower urinary tract symptom s 2024 Benign localized prostatic h yperplasia with lower urinary tract symptoms (LUTS) 11/24/2024 Assessment & Plan (11/24/2024 1:39 PM PATIENT RELATIONS MANAGER): Continues on tamsulosin. No orthostasis. Reid catheter in place. WIll monitor response. Hypertension, essential 11/24/2024 Assessment & Plan (11/24/2024 1:40 PM PATIENT RELATIONS MANAGER): Stable on amlodipine and tamsulosin. Montior for orthostasis or dizziness or other symptoms of low blood pressure. SIADH (syndrome of inappropriate ADH production) 11/24/2024 Assessment & Plan (11/24/2024 1:40 PM PATIENT RELATIONS MANAGER): Reviewed improved sodium with reid placmeent. Montior fluid intake and ogoing surveillance of sodium levels. 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 Blood glucose abnormal 08/12/2024 Urinary retention 07/02/2024 Assessment & Plan (11/24/2024 1:39 PM PATIENT RELATIONS MANAGER): Reid catheter in place. Resolution of hematuria. Anticiapting aquaturp on . Montior for recurrent o fhematuria. Assessment & Plan (09/28/2024 2:07 PM PATIENT RELATIONS MANAGER): Montior urinary retention and will continue to [...] 06/30/2024 Assessment & Plan (09/28/2024 2:07 PM PATIENT RELATIONS MANAGER): Continue f/u with neuorology and will follow [...] Insurance denied rehab. Need to perform P2P. [phone] option 5, due 07/07 by 10:00 AM - 07/07: Pending authorization to [facility] Closed displaced intertrochanteric fracture of r ight femur 06/29/2024 Assessment & Plan (09/28/2024 2:07 PM PATIENT RELATIONS MANAGER): Continues to improve ambulation. Reivweed fall prevention. [...] 12/28/2022 Assessment & Plan (09/28/2024 2:07 PM PATIENT RELATIONS MANAGER): As above. Adenocarcinoma, lung, right 09/18/2022 Cancer Staging:Clinical stage from 09/20/2022:Stage IIIB(cT1b, cN3, cM0) - Signed by Betito Servin MD PhD on 11/22/2022 Assessment & Plan (11/24/2024 1:39 PM PATIENT RELATIONS MANAGER): COntinue f/u with oncology and will monitor response. No change at the present time. Assessment & Plan (09/28/2024 2:07 PM PATIENT RELATIONS MANAGER): Continue f/uw with pulmonary. Reviewed pulmonary hygiene and will montior ersponse. Mediastinal lymphadenopathy 08/25/2022 Overview (08/25/2022): Added automatically from request for surgery [id number] Hilar lymphadenopathy 08/25/2022 Overview (08/25/2022): Added automatically from request for surgery [id number] CEM (obstructive sleep apnea) 05/25/2022 Memory changes [...] 08/03/2021 Assessment & Plan (09/28/2024 2:06 PM PATIENT RELATIONS MANAGER): Continues f/u with neuorlogy. 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 Continue on metoprolol XL and lisinopril and will follo response. Assessment & Plan (07/02/2024 9:37 AM CDT): - Continue Metoprolol XL 100mg daily Assessment & Plan (11/08/2021 11:52 AM PATIENT RELATIONS MANAGER): Long discussion today. His blood pressures that [...] syndrome Assessment & Plan (09/28/2024 2:05 PM PATIENT RELATIONS MANAGER): Continues on therapy and supporitve measures with neuropathy. Assessment & Plan (05/29/2018 9:14 AM CDT): See # 1 Assessment & Plan (11/28/2017 3:59 PM PATIENT RELATIONS MANAGER): He was last seen in our office [...] his insurance. I suggested that he try [facility] or the [facility]. Hereditary and idiopathic neuropathy Anemia Immunizations Immunization Administration Dates Next Due Influenza, [...] Adjuvanted, PF, IM (Arexvy) 07/24/2023,07/23/2023 Tdap 06/16/2022 Social History Tobacco Use Types Packs/Day Years Used Date Smoking Tobacco: Former Cigarettes 1 20 1 960 - 1980 Smokeless Tobacco: Never Tobacco Cessation:Counseling Given: Not [...] materials from doctor or pharmacy Always 01/02/2025 [facility] Utilities Answer Date Recorded In the past 12 months has e [employer], oil, or water [employer] threatened to shut off services in your [...] 12/29/2024 How often do you attend chur ch or temple services? More than 4 times per year 12/29/2024 Do you belong to any clubs o r organizations such as druze groups, unions, fraternal or athletic groups, or [...] staff should administer the PHQ-9) 0 12/29/2024 [facility] - Occupational Stress Questionnaire Answer Date [...] any time in the past 12 m [facility], were you homeless or living in a jail (including now)? No 12/29/2024 Personal Safety Answer Date Recorded Have you ever been in or are you currently in a harmful physical or emotional relationship or is someone making you feel afraid or unsafe? Denies 2024 Sex and Gender Information Value Date Recorded Sex Assigned at Not on file Legal Sex Male 11:58 PM PATIENT RELATIONS MANAGER Gender Identity Not on file Sexual Orientation [...] 02/16/2025 10:37 AM CDT Plan of Treatment Not on file Goals Goal Patient Goal Type Associated Problems Recent Progress Patient-Stated? Author MARLENE General Goal - Patient is knowledgeable about condition when worsening and how to respond ACO Care Management On track(2023 11:02 AM PATIENT RELATIONS MANAGER) Dayton Frank, RN Note: Problem: Knowledge deficit [...] take, when to call CM or provider. Medical Devices Implanted Type Area Program Development Manager Device Identifier Shelf Expiration Date Model / Serial / Lot Synthes Tfn-Advanced 12mm 460mm Cannulated Femoral Proximal 130d Long 04.037.266s - S0 - [id number] Implanted:Qty: 1 on 06/29/2024 by Terrence Zacarias MD at [facility] Nail Right: Femur Synthes I [id number] 05/21/2033 04.037.266 S / 0 / [id number] Synthes Tfn-Advanced 10.35mm 100mm Cannulated Screw Bone Titanium 04.038.200s - S0 - [id number] Implanted:Qty: 1 on 06/29/2024 by Terrence Zacarias MD at [facility] Screw Right: Femur Synthes I [id number] 05/21/2034 04.038.200 S / 0 / [id number] Synthes Screw Bone Locking Cannulated Femoral Proximal Full Thread Light Green 5.0x46mm Titanium 04.045.046 - S0 - [id number] Implanted:Qty: 1 on 06/29/2024 by Terrence Zacarias MD at [facility] Screw Right: Femur Synthes I 04.045.046 / 0 / 0 Synthes Screw Locking Im Nail 5mm 54mm 04.045.054 - S0 - [id number] Implanted:Qty: 1 on 06/29/2024 by Terrence Zacarias MD at [facility] Screw Right: Femur Synthes I 04.045.054 / 0 / 0 Procedures Procedure Name Priority Date/Time Associated Diagnosis Comments EGFR Routine 02/06/2025 2:00 PM CDT Adenocarcinoma, lung, right (HCC) Other fatigue COMPREHENSIVE METABOLIC PANEL Routine 02/06/2025 2:00 PM CDT Adenocarcinoma, lung, right (HCC) Other fatigue DIFFERENTIAL AUTO Routine 02/06/2025 1:4 0 PM CDT CBC WITH AUTO DIFFERENTIAL Routine 02/06/2025 1:[address] CHEST ABDOMEN PELVIS W CONTRAST Schedule Routine, Read Routine (OP Routine) 01/30/2025 1:16 PM CDT [id number]|2025-03-04 08:22:00|2025-03-04 08:22:00|XMS_ITS|EVETTE BULLOCK|External Medical Summaries|[id number]|" Encounter Summary Created on: March 04, 2025 Ray Feliz : 1945 Sex: Male Author Organization [facility] Healthcare Address [address] [place] [address] Care Team Providers Care Inspector Salvage Name Role Phone Jerry Cortes MD Unavailable [phone] Betito Servin MD PhD Unavailable [phone] Isaias Moore MD Unavailable [phone] Lukas Rose MD Unavailable Demetrius Nixon MD Primary Care Provider [phone] Dayton Fernandez RN Unavailable [phone] Sherri Reyna NP Unavailable [phone] Dayton Fernandez RN Unavailable [phone] Encounter Details Date Type Department Care Team (Late st Contact Info) Description 08/06/2024 ACO Quality [facility] Accountable Care Organization [address] [place] [address] Pina Lamb, RN [address] [place] [address] [address] [place] [address] Social History Tobacco Use Types Packs/Day Years [...] materials from doctor or pharmacy Never 08/03/2024 [facility] Utilities Answer Date Recorded In the past 12 months has e [employer], gas, oil, or water [employer] threatened to shut off services in your home? No 08/01/2024 Humiliation, Afraid, Rape, and Kick questionnair e [...] friends, or neighbors? Three times a week 07/01/2024 How often do you get togethe r with friends or relatives? Three times a week 07/01/2024 How often do you attend chur ch or temple services? More than 4 times per year 07/01/2024 Do you belong to any clubs o r organizations such as druze groups, unions, fraternal or athletic groups, or school groups? Yes 07/01/2024 How often do you attend meet ings of the clubs or organizations you belong to? More than 4 times per year 07/01/2024 Are you , , di vorced, , never , or living with a partner? 07/01/2024 AUDIT-C Answer Date Recorded Q1: How often [...] care, and heating? Not hard at all 08/01/2024 PHQ-2 Answer Date Recorded PHQ-2 Total Score (If total score is 3 or more points, staff should administer the PHQ-9) 0 08/07/2024 [facility] - Occupational [...] the money to buy more. Never true 08/01/20 24 Within the past 12 months, t he food you bought just didn't last and you didn't have money to get more. Never true 08/01/2024 PRAPARE - Transportation Answer Date Re corded In the past 12 months, has l ack of transportation kept you from medical appointments or from getting medications? No 07/22 In the past 12 months, has l ack of transportation kept you from meetings, work, or from getting things needed for daily living? No 08/01/2024 Housing Stability Vital Sign Answer Lalito e Recorded In the last 12 months, was t here a time when you were not able to pay the mortgage or rent on time? No 07/01/2024 In the past 12 months, how m any times have you moved where you were living? 1 07/01/2024 At any time in the past 12 m [facility], were you homeless or living in a jail (including now)? No 07/01/2024 Personal Safety Answer Date Recorded Have you ever been in or are you currently in a harmful physical or emotional relationship or is someone making you feel afraid or unsafe? Denies 06/29/2024 Sex and Gender Information Value Date Recorded Sex Assigned at Not on file Legal Sex Male 11:58 PM PATIENT RELATIONS MANAGER Gender Identity Not on file Sexual Orientation Not on file documented as of this encounter Plan of Treatment Not on file documented as of this encounter Goals Goal Patient Goal Type Associated Problems Recent Progress Patient-Stated? Author MARLENE General Goal - Patient is knowledgeable about condition when worsening and how to respond ACO Care Management On track(2023 11:02 AM PATIENT RELATIONS MANAGER) Dayton Frank, YUE Note: Problem: Knowledge deficit [...] COVID: Suspected 11/08/2024 11/08/2024 11/08/2024 11:33 PM PATIENT RELATIONS MANAGER documented as of this encounter Care Teams Inspector Salvage Relationship Specialty Start Date End Date [place] [address] PCP - General Family Medicine 12/04/22 Jerry Cortes MD [address] [place] [address] Consulting Physician Nephrology 05/29/22 Betito Servin MD PhD [address] [place] [address] Radiation Oncologist Radiation Oncology 09/27/22 Isaias Moore MD [address] [place] [address] Referring Physician Hematology and Oncology 09/28/22 Lukas Rose MD [address] [place] [address] Consulting Physician Pulmonary Disease 09/28/22 Dayton Fernandez RN [address] [place] [address] Stenographer Secretary 08/01/24 08/28/24 Sherri Reyna NP [address] [place] [address] Nurse Practitioner Family Medicine 08/01/24 11/06/24 Dayton Fernandez RN [address] [address] Stenographer Secretary 11/13/24 12/11/24 documented as of this encounter "
--- OUTSIDE RECORDS SUMMARY | 2025-03-04 08:28 | XMS_ITS | Continuity of Care Document ---
Author Organization [facility] Address [address] [place] [address] Phone Care Team Providers Care Supervisor Pipeline Maintenance Name Role Phone Jose Mcguire DO Unavailable Unavailable Advance Directives Directive Yes / No Effective Date File Name No Information Encounters Encounter Description Practice Location Reason(s) For Visit Diagnoses Date Provider Providers Copied on Encounter [facility], [id number] [place] [address] [address], [place], [place], [id number], [place] tel:[phone] [facility] No Information Maynor Rodriguez. [address] [facility], [place], [address], [place]. tel: [phone] Family History Family Member Type Diagnosis Age At Onset No Information Payers Payer name Insurance type Covered constitution party ID Authoriza tion(s) No Information Social [...]
--- NOTE | 2025-03-04 08:45 | ED_ITS ---
HPI - Extremity Injury (Upper) General Stated Complaint: fall Time Seen by Provider: 03/04/25 08:56 Source: patient and RN notes reviewed Mode of arrival: ambulatory Limitations: no limitations History of Present Illness HPI narrative: 79-year-old male with history of Parkinson's disease presents with concern for injury to the right elbow. Reports yesterday he slipped and fell while using his walker on some mikala. He has a swollen elbow with open wound. His reports they washed it and put ice on it. MD complaint: injury to: right and elbow Related Data Home Medications Medication Instructions Recorded Confirmed Last Taken Type amlodipine 5 mg-benazepril 10 mg 1 cap PO DAILY 05/06/22 05/06/22 Unknown History capsule gabapentin 300 mg tablet 300 mg PO DAILY 05/06/22 05/06/22 Unknown History hydrochlorothiazide 25 mg tablet 25 mg PO DAILY 05/06/22 05/06/22 Unknown History metoprolol succinate 50 mg 50 mg PO DAILY 05/06/22 05/06/22 Unknown History tablet,extended release 24 hr ropinirole 0.25 mg tablet 0.25 mg PO BID 05/06/22 05/06/22 Unknown History vit 1 cap PO DAILY 05/06/22 05/06/22 Unknown History C,E,zinc,Px-jtpqw-0-lutein-zeaxanthin 250 mg-2.5 mg-0.5 mg capsule amlodipine 10 mg tablet mg 03/04/25 Unknown History carbidopa 25 mg-levodopa 100 mg tablet 03/04/25 Unknown History tablet fluticasone fur. 100 mcg-umeclid inhalation 03/04/25 Unknown History 62.5 mcg-vilant 25 mcg inhalat.powder (Trelegy Ellipta) levothyroxine 25 mcg tablet mcg 03/04/25 Unknown History lisinopril 10 mg tablet mg 03/04/25 Unknown History metoprolol succinate 100 mg mg PO 03/04/25 Unknown History tablet,extended release 24 hr tamsulosin 0.4 mg capsule mg PO 03/04/25 Unknown History Allergies Allergy/AdvReac Type Severity Reaction Status Date / Time No Known Allergies Allergy Verified 03/04/25 08:51 Review of Systems 2 Review of Systems: CONSTITUTIONAL: Denies malaise, chills, sweats, or fever. SKIN: Denies rash or itching, redness, warmth. Reports laceration left elbow MUSCULOSKELETAL: Reports left elbow pain and swelling NEUROLOGIC: Denies numbness, weakness All systems reviewed & are unremarkable except as noted in HPI and below PMFSH Comments At time of signature, agree with nursing past medical, surgical, social and family history. There is no relevant family history pertinent to the presenting complaint Exam 2 Narrative: GENERAL: Well-appearing, well-nourished, and in no acute distress. HEAD: Normocephalic, atraumatic. EYES: PERRLA, conjunctivae clear NECK: Supple. CHEST: Speaks in full sentences. No respiratory distress. HEART: Regular rate and rhythm. Normal and equal peripheral pulses. EXTREMITIES: Left upper extremity has grossly normal strength and sensation, grossly normal range of motion. Elbow edema without edema, warmth, ecchymosis. Normal sensation with sensitivity to light touch and pain. No point tenderness. No skin tenting, no devitalized tissue or atrophy, no trophic changes, no obvious deformity, alignment normal, nearby joints and structures intact. Distal pulses palpable and equal bilaterally, skin warm, dry, pink. Capillary refill less than 3 seconds. SKIN: Warm, dry, no rash. Skin tear combined with laceration noted to the left elbow NEURO: Alert and oriented x3. PSYCH: Normal mood and affect Back/Spine/Pelvis: Back/spine/pelvis image: 1. 2 cm skin tear with combined laceration Course Course Emergency Course: Laceration noted to the left elbow, occurred yesterday. Laceration is surrounded by complete skin tear. Suturing not appropriate for this reason. Steri-Strips applied to close wound, Gonzalez wrap applied to elbow to keep elbow slightly immobilized to decrease chance of wound opening Patient is aware of diagnosis, understands and agrees to treatment plan. Anticipatory guidance given. Patient agrees to follow-up as directed and is aware of reasons to seek care at the emergency department. Portions of this record may have been created with voice recognition software Level of Care: Express Care Visit Vital Signs Vital signs: Vital Signs Temperature 98.1 F 03/04/25 08:20 Pulse Rate 90 03/04/25 08:20 Respiratory Rate 20 03/04/25 08:20 Blood Pressure 150/77 H 03/04/25 08:20 Pulse Oximetry 98 03/04/25 08:20 Oxygen Delivery Room Air 03/04/25 08:20 Temperature 98.1 F 03/04/25 08:20 Pulse Rate 90 03/04/25 08:20 Respiratory Rate 20 03/04/25 08:20 Blood Pressure 150/77 H 03/04/25 08:20 Pulse Oximetry 98 03/04/25 08:20 Oxygen Delivery Room Air 03/04/25 08:20 Reviewed. Procedures Laceration Laceration 1: Date: 03/04/25 Time: 09:25 Site: upper extremity Side (If applicable): right Size (cm): 2 Description: irregular Depth: simple, single layer Pre-repair: wound explored and irrigated ====== Skin Level ====== Skin layer closed with: steri strips ====== Subcutaneous Layer ====== ====== Muscle Layer ====== ====== Tendon Layer ====== MDM - Extremity Injury (Upper) MDM Narrative Medical decision making narrative: Patients injury and pain is consistent with musculoskeletal etiology. No signs of neurological or vascular compromise on exam. Compartments and tissues are soft without signs of compartment syndrome. Pain is felt appropriate for further evaluation on an outpatient basis. Imaging Data My impression: Images reviewed, interpreted by radiologist, agree, see report. Radiologist's impression: EXAMINATION: XR elbow RT min 3V DATE: 03/04/2025 08:48 INDICATION: Lateral right elbow pain post fall TECHNIQUE: Anteroposterior, two oblique and lateral views of the right elbow were obtained. COMPARISON: None. FINDINGS: Alignment is normal. No fracture or joint effusion. Mild osteoarthritis at the right elbow. Skin laceration with underlying soft tissue tissue swelling with a few small foci of gas posterior to the olecranon. IMPRESSION: 1. Mild osteoarthritis right elbow. No joint effusion or acute osseous abnormality. Critical Care Time Critical Care Time Critical Care Time: No Discharge Plan Discharge Clinical Impression: Laceration, Elbow injury Patient Disposition: Home Condition: Stable Instructions: Laceration (ED) Additional Instructions: Your x-ray is normal. Keep Steri-Strips intact for 24-48 hours. Use Gonzalez wrap to help immobilize elbow to help keep wound edges from opening up. Use ice when you have the Gonzalez wrap removed. Please make a follow-up appoint with your primary care provider for further evaluation. If you have any urgent concerns please go to the emergency room Patient Language: Croatian Prescriptions: No Action metoprolol succinate 50 mg Tablet Extended Release 24 Hr 50 mg PO DAILY amlodipine-benazepril 5-10 mg Capsule 1 cap PO DAILY PreserVision AREDS-2 (omega-3) 250-2.5-0.5 mg Capsule 1 cap PO DAILY ropinirole 0.25 mg Tablet 0.25 mg PO BID hydrochlorothiazide 25 mg Tablet 25 mg PO DAILY gabapentin 300 mg Tablet 300 mg PO DAILY Follow-up/Referrals: Harms,Demetrius Kemp M.D. [Primary Care Provider] - Time of Disposition: 09:38
== END 2025-03-04 09:40 | disposition home or self-care (01) ==
PROVIDERS: Emergency Provider Nurse Practitioner; PCP Family Medicine
DX: S51.011A Laceration without foreign body of right elbow, initial encounter (principal); W18.09XA Striking against other object with subsequent fall, initial encounter; G20.A1 Parkinson's disease without dyskinesia, without mention of fluctuations; I10 Essential (primary) hypertension; G62.9 Polyneuropathy, unspecified; Z96.641 Presence of right artificial hip joint; Z85.118 Personal history of other malignant neoplasm of bronchus and lung; Z97.0 Presence of artificial eye
CPT/HCPCS: 73080; 99213; G0463